=== PATIENT | male | born 1955 | race Caucasian/White ===

== ENCOUNTER → 2024-03-19 10:53 | Outpatient (REF) | payer OTHER, SELFPAY ==
[2024-03-19 12:12] LABS: ALT (SGPT) 24 U/L (0-50); AST (SGOT) 24 U/L (17-59); Albumin 3.9 g/dl (3.5-5.0); Alkaline Phosphatase 122 U/L (38-126); Blood Urea Nitrogen 15 mg/dl (9-20); Calcium 9.5 mg/dl (8.4-10.2); Carbon Dioxide 23 mmol/L (22-30); Chloride 106 mmol/L (98-107); Glucose 101 mg/dl (70-99); HDL Cholesterol 40 mg/dl; LDL Cholesterol, Calculated 46 mg/dl; Potassium 4.6 mmol/L (3.5-5.1); Sodium 139 mmol/L (135-145); Total Bilirubin 0.6 mg/dl (0.2-1.3); Total Cholesterol 102 mg/dl (50-199); Total Protein 6.5 g/dl (6.3-8.2); Triglyceride 81 mg/dl (10-149); Very Low Density Lipoprotein 16 mg/dl (0-30); eGFR > 60.00
[2024-03-19 12:36] LABS: Microalbumin, Random Urine 0.9 mg/dl (0.6-1.7)
[2024-03-19 13:23] LABS: Glycohemoglobin (HgbA1c) 6.2 % (4.0-5.6)
== END ==
LOC: HWLAB 10:53
PROVIDERS: ATTENDING PHYSICIAN Internal Medicine
DX: E11.621 Type 2 diabetes mellitus with foot ulcer (principal); E11.65 Type 2 diabetes mellitus with hyperglycemia; R93.1 Abnormal findings on diagnostic imaging of heart and coronary circulation
CPT/HCPCS: 36415; 80053; 80061; 82043; 83036

== ENCOUNTER → 2024-03-26 10:49 | Outpatient (REF) | payer OTHER, SELFPAY | LOC: RAD 10:49 | PROVIDERS: ATTENDING PHYSICIAN Internal Medicine Cardiovascular Disease; FAMILY PHYSICIAN Internal Medicine | DX: Z13.6 Encounter for screening for cardiovascular disorders (principal); Z82.49 Family history of ischemic heart disease and other diseases of the circulatory system; R93.1 Abnormal findings on diagnostic imaging of heart and coronary circulation; E11.9 Type 2 diabetes mellitus without complications; E78.00 Pure hypercholesterolemia, unspecified; Z86.718 Personal history of other venous thrombosis and embolism; I45.10 Unspecified right bundle-branch block | CPT/HCPCS: 76770; 93306 ==

== ENCOUNTER 2024-08-21 16:17 | Inpatient (IN) | payer OTHER, SELFPAY ==
[2024-08-21 12:02] VITALS: BP 178/82
[2024-08-21 12:29] LABS: % Basophils 0.6 % (0-2); % Eosinophils 1.8 % (0-6); % Immature Granulocytes 0.3 % (0-0.5); % Lymphocytes 17.6 % (20.5-51.1); % Monocytes 8.2 % (1.7-9.3); % Neutrophils 71.5 % (42.2-75.2); Absolute Basophils 0.1 10^3/uL (0-0.2); Absolute Eosinophils 0.2 10^3/uL (0-0.7); Absolute Lymphocytes 2.2 10^3/uL (1.2-3.4); Absolute Neutrophils 8.9 10^3/uL (1.4-6.5); Hematocrit 42.3 % (39.0-52.0); Hemoglobin 14.7 g/dL (13.0-18.0); Mean Corp Hgb Conc. 34.8 g/dL (33.0-37.0); Mean Corpuscular Hgb 30.3 pg (27.0-31.0); Mean Corpuscular Volume 87.2 fL (80.0-94.0); Mean Platelet Volume 9.4 fL (7.4-10.4); Nucleated Red Blood Cells % 0 % (-); Platelet Count 260 10^3/uL (130-400); Red Blood Cell Count 4.85 10^6/uL (4.70-6.10); Red Cell Dist. Width 13.7 % (11.5-14.5); White Blood Cell Count 12.5 10^3/uL (4.8-10.8)
[2024-08-21 12:41] LABS: ALT (SGPT) 28 U/L (0-50); AST (SGOT) 28 U/L (17-59); Albumin 4.5 g/dl (3.5-5.0); Alkaline Phosphatase 118 U/L (38-126); Blood Urea Nitrogen 24 mg/dl (9-20); Calcium 10.4 mg/dl (8.4-10.2); Carbon Dioxide 23 mmol/L (22-30); Chloride 105 mmol/L (98-107); Glucose 124 mg/dl (70-99); Potassium 5.4 mmol/L (3.5-5.1); Sodium 141 mmol/L (135-145); Total Bilirubin 0.8 mg/dl (0.2-1.3); Total Protein 7.1 g/dl (6.3-8.2); eGFR > 60.00
--- NOTE | 2024-08-21 13:41 | ED.SKININJ ---
HPI-Injury
General
Chief Complaint: Skin Problem
Source: patient
Exam Limitations: none
Time Seen by Provider: 08/21/24 13:29
History of Present Illness-Injury
Initial Injury comments:
68-year-old male diabetic patient presents with 2 days worth of redness swelling and discoloration to the right fourth toe. He has had prior amputations of the second and third toe. He has neuropathy. He does not have any pain. He denies fevers
chills or sweats. He is on metformin and Trulicity but is not currently on insulin.
Past History
Past History
ED Past Medical History: NIDDM
ED Past Surgical History: Orthopedic (Amputation of the right third toe)
Social History
Tobacco: Non-smoker
Alcohol: None
Drug: None
Personal:
Living: with family
Employment: Retired
Family History
Family History: Other (Noncontributory)
Phy Exam
Physical Exam
Physical Exam:
General: Well-appearing male no acute respiratory distress
HEENT: Normocephalic atraumatic
Heart: Regular rate and rhythm no murmurs
Lungs: Clear no wheeze
Skin: Right fourth toe erythematous swollen malodorous and slightly necrotic towards the distal portion of the toe. Mild erythema noted over the dorsum of the foot
Vascular: 2+ dorsalis pedis pulse right foot
Neurologic: Decreased sensation to light touch to right foot
Course
Orders/Labs/Results
Orders:
Orders
08/21/24 12:08
Complete Blood Count/With Diff Urgent
Comprehensive Metabolic Panel Urgent
08/21/24 13:40
CR Foot - Right Min 3 Views Urgent
Comment:
Reason For Exam: toe infection
08/21/24 15:10
Piperacillin/Tazo 3.375 Gram [Zosyn] 3.375 gram in 50 ml IV NOW
Abnormal Lab Results
08/21/24
12:08
WBC 12.5 H 10^3/uL
(4.8-10.8)
Absolute Neuts (auto) 8.9 H 10^3/uL
(1.4-6.5)
Absolute Monos (auto) 1.0 H 10^3/uL
(0.1-0.6)
Lymphocytes % 17.6 L %
(20.5-51.1)
Potassium 5.4 H mmol/L
(3.5-5.1)
BUN 24 H mg/dl
(9-20)
Glucose 124 H mg/dl
(70-99)
Calcium 10.4 H mg/dl
(8.4-10.2)
08/21/24 12:08
08/21/24 12:08
Vital Signs
Initial and Last Documented VS:
Initial Vital Signs
Temp Pulse Resp BP Pulse Ox
97.6 F 72 18 178/82 100
08/21/24 12:02 08/21/24 12:02 08/21/24 12:02 08/21/24 12:02 08/21/24 12:02
Last Documented Vital Signs
Temp Pulse Resp BP Pulse Ox
97.6 F 72 18 178/82 100
08/21/24 12:02 08/21/24 12:02 08/21/24 12:02 08/21/24 12:02 08/21/24 12:02
MDM/Problems Addressed
Differential Diagnosis Includes:
Right fourth toe infection. Concern for cellulitis also consider abscess versus osteomyelitis. Patient is a diabetic patient. Labs demonstrate slight leukocytosis with a value of 12.5. X-rays right foot pending to screen for osteomyelitis. Will
have low threshold to keep given diabetic state and leukocytosis
*Critical Care Note
Total Time (30-74mins, 75-104mins- exclusive of procedures): Not Applicable
Update Note
Update Note:
X-ray showed no obvious evidence of osteomyelitis. Zosyn ordered will admit to hospital for diabetic foot infection
ED Attending Note
-
Portions of this chart may have been created with voice recognition software.� Occasional wrong word or��sound alike� substitutions may have occurred due to the inherent limitations of voice recognition software.
Discharge Plan
Departure
Patient Disposition: Admit
Date of Disposition: 08/21/24
Time of Disposition: 15:26
Admit to: Med/Surg
Presentation/result/management discussed w/ accepting MD/DO: Hospitalist
Discharge Problem:
Diabetic infection of right foot
Prescriptions:
No Action
metformin 500 MG tablet
1,000 mg PO BID@0800,1700
aspirin 81 MG tablet,delayed release (DR/EC)
81 mg PO DAILY
atorvastatin 40 mg Tablet
40 mg PO QPM
Centrum Silver 0.4 mg-300 mcg- 250 mcg Tablet
1 tab PO DAILY
Trulicity 4.5 mg/0.5 mL Pen Injector
4.5 mg SC MARKS
Referrals:
Torrey Alvarez DO [Family Provider] -
Interventions
Interventions:
*Risk Screen - Suicide Last Done: 08/21/24 12:02
*General Assessment Last Done: 08/21/24 12:02
*Neglect/Abuse Screening Last Done: 08/21/24 12:02
*ED COVID-19 Vaccine History Last Done: 08/21/24 12:02
Discharge Date and Time
Print Language: SAMOAN
[2024-08-21] MEDS: ZOSYN 50 IV ×2 (15:54→22:27)
--- NOTE | 2024-08-21 16:14 | HPS.HSE ---
Addendum entered and electronically signed by Whitney Benoit MD 08/21/24 20:32:
NPO past midnight for potential amputation tomorrow.
Original Note:
Family Physician
-
Family Physician: Torrey Alvarez
Chief Complaint
-
toe infection
History of Present Illness
68-year-old male past medical history of diabetes, diabetic neuropathy, prior amputations of left and right lower extremity, bilateral DVTs 9 years ago, presenting with 2 days of redness, swelling discoloration of the right fourth toe. There was
drainage. He denies any fevers or chills. He has decreased sensation of the feet due to his neuropathy. He has chronic red discoloration of his right lower extremity from prior DVTs.
His nut culler is Dr. Cornell.
He has a history of DVTs 9 years ago treated with anticoagulation but no longer on anticoagulation. He had arterial ultrasounds checked at that time and a year later which were unremarkable. He denies any further arterial workup.
He is a former smoker. He denies alcohol.
Medical History
Past Medical History
Past Medical History: Reports Other (diabetes, diabetic neuropathy, prior amputations of left and right lower extremity, bilateral DVTs 9 years ago,)
Past Surgical History: Reports None
Social History
Tobacco: Non-smoker
Alcohol: None
Drug: None
Family History
Family History: Not pertinent
Allergies / Home Medications
Allergies reflects when Allergies were last updated in [facility].
Home Medications with original date entered in [facility]
Allergy/Medication List:
Allergies
Allergy/AdvReac Type Severity Reaction Status Date / Time
No Known Allergies Allergy Verified 03/17/22 10:20
Home Medications
aspirin 81 mg tablet,delayed release 81 mg PO DAILY Blood clot prevention/tx 03/17/22
metformin 500 mg tablet 1,000 mg PO BID@0800,1700 Diabetes 03/17/22
atorvastatin 40 mg tablet 40 mg PO QPM 08/21/24
dulaglutide 4.5 mg/0.5 mL subcutaneous pen injector (Trulicity) 4.5 mg SC MARKS 08/21/24
nmrinjni-ejt-yawvx acid 0.4 mg-lycopene 300 mcg-lutein 250 mcg tablet (Centrum Silver) 1 tab PO DAILY 08/21/24
Review of Systems
-
Constitutional: Reports No Symptoms
EENT: Reports No Symptoms
Respiratory: Reports No Symptoms
Cardiac: Reports No Symptoms
Abdomen/GI: Reports No Symptoms
: Reports No Symptoms
Musculoskeletal: Reports No Symptoms
Skin: Reports See HPI
Neurological: Reports No Symptoms
Endocrine: Reports No Symptoms
Hematologic/Lymphatic: Reports No Symptoms
Psych: Reports No Symptoms
Physical Exam
Vital Signs
Vital Signs
Temp Pulse Resp BP Pulse Ox
97.6 F 72 18 178/82 100
08/21/24 12:02 08/21/24 12:02 08/21/24 12:02 08/21/24 12:02 08/21/24 12:02
Physical Exam
General: Well Developed, Well Nourished and No Apparent Distress
HEENT: NormoCephalic, Moist mucous membranes and Atraumatic
Respiratory: Clear
Cardiac: S1/S2 and Regular Rhythm; No Murmur or Rub
GI: Soft, Non Tender, Non Distended and Normal Bowel Sounds; No Organomegaly
Rectal: Deferred by Provider
Musculoskeletal: No Clubbing, No Cyanosis and No Edema
Skin: Other (right 4th toe etyrhema and swelling with gangrene ); No Rash
Neuro: Nonfocal/grossly intact
Laboratory Results
-
08/21/24 12:08
08/21/24 12:08
Laboratory Results
Total Bilirubin 0.8 mg/dl (0.2-1.3) 08/21/24 12:08
AST 28 U/L (17-59) 08/21/24 12:08
ALT 28 U/L (0-50) 08/21/24 12:08
Alkaline Phosphatase 118 U/L (38-126) 08/21/24 12:08
Data Reviewed
-
Lab Data: Labs Reviewed by me
Old Records: Reviewed
Impression/Plan
-
IMPRESSION:
PLAN:
# Right fourth toe diabetic foot infection suspect osteomyelitis with gangrene
-Foot x-ray pending to evaluate for osteomyelitis
-Check arterial ultrasound/THI
-Vancomycin Zosyn
-Likely will require amputation, podiatry consulted
# Hyperkalemia
-IV fluid bolus
Type 2 diabetes
-Hold metformin
-Insulin sliding scale
History of diabetic foot infection status post amputations of second and third toe
History of bilateral DVTs
Full code
DVT prophylaxis�heparin
Regular diet
[2024-08-21] MEDS: NSS 500 IV (16:45)
--- NOTE | 2024-08-21 17:09 | CM ---
Addendum entered by Liliana Francis 08/21/24 18:00:
BREA introduced self and role. Patient uses Dr. Guevara as a PCP and uses [facility] in [place] as pharmacy. He lives with his in home with a basement. He has 2 steps to enter. He is independent. He does not use any DME. He owns a walker. He drove
himself to the hospital. He is retired. 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 He denied any +SDOHs.
ANTICIPATED DISCHARGE DISPO: Home with , when medically cleared.
Original Note:
BREA chart reviewed. Patient is here for right fourth toe diabetic foot infection. Hospitalist suspects osteomyelitis with gangrene
[2024-08-21 17:30] VITALS: BP 139/68; BMI 42.5
--- NOTE | 2024-08-21 17:30 | PTCARENOTE ---
pt received as admission from ED to room 338- pt ambulated from stretcher to bed. AAOX3. denies pain. right 4th toe red and swollen with open area. pt oriented to room and unit. pt updated on plan of care.
1900- pt with hist of mrsa- transferred to room 328 private room
[2024-08-21 17:42] VITALS: BMI 42.8
[2024-08-21 18:17] LABS: Glucose - Point of Care 140 mg/dl (70-99)
[2024-08-21 18:18] VITALS: BP 132/83
[2024-08-21] MEDS: LIPITOR 40 MG PO (18:37)
--- NOTE | 2024-08-21 19:05 | PHA.VAN.IN ---
Assessment
- Assessment
Renal Function: Appears similar to baseline (03/19/24 SCR = 1,0)
Concomitant Antimicrobials: ZOSYN
- Previous Dosing Experience
Previous Regimen: 1500MG IV Q12H
Date of Regimen: 03/18/22
Provided Trough of: 12
Provided AUC of: 498
Patient's SCR is: Elevated compared to previous dosing experience (03/18/22 SCR = 0.8)
Patient's weight is: Decreased compared to previous dosing experience (03/18/22 WT = 146.8 KG)
AUC Dosing Plan
- Dosing Variables
Dosing Weight (kg): 142.9 KG
Dosing CrCl (ml/min): 92
Vd coefficient (L/kg): 0.5
- Empiric Dosing
Initial / Loading Dose: 2GM
Maintenance Regimen: 1500MG IV Q12H
Estimated AUC (mcg*h/mL): 552
Estimated Peak (mcg*h/mL): 33.9
Estimated Trough (mcg/ml): 14.5
Estimated Half Life (H): 8.6
Pharmacokinetics Vancomycin I
- -
Patient Age: 68
Patient Sex: Male
Vancomycin Day #: 1
Indication: Diabetic Foot (OM/GANGRENE)
Requesting Provider: MARY
Height / Weight:
Height 6 ft
Actual Weight 142.882 kg
Pertinent Past Medical History: DM/PRIOR TOE AMPUTATIONS
- Vital Signs / Lab Results
Temp Pulse Resp BP Pulse Ox
97.6 F 77 16 132/83 100
08/21/24 12:02 08/21/24 18:18 08/21/24 18:18 08/21/24 18:18 08/21/24 18:18
Lab Results - Hematology
08/21/24
12:08
WBC 12.5 H
Lab Results - Chemistry
08/21/24
12:08
BUN 24 H
Creatinine 1.1
Albumin 4.5
[2024-08-21] MEDS: VANCOCIN 540 MG IV (20:06)
[2024-08-21] MEDS: HEPARIN 5000 UNITS SC (20:56)
[2024-08-21 21:08] LABS: Glucose - Point of Care 128 mg/dl (70-99)
[2024-08-21 23:29] VITALS: BP 155/81
[2024-08-22] MEDS: ZOSYN 50 IV ×4 (04:00→21:04)
[2024-08-22] MEDS: VANCOCIN 530 MG IV ×2 (06:18→17:22)
[2024-08-22 06:25] LABS: % Basophils 0.9 % (0-2); % Eosinophils 3.8 % (0-6); % Immature Granulocytes 0.3 % (0-0.5); % Lymphocytes 18.1 % (20.5-51.1); % Monocytes 11.1 % (1.7-9.3); % Neutrophils 65.8 % (42.2-75.2); Absolute Basophils 0.1 10^3/uL (0-0.2); Absolute Eosinophils 0.4 10^3/uL (0-0.7); Absolute Lymphocytes 1.7 10^3/uL (1.2-3.4); Absolute Monocytes 1.1 10^3/uL (0.1-0.6); Absolute Neutrophils 6.3 10^3/uL (1.4-6.5); Hematocrit 38.9 % (39.0-52.0); Mean Corp Hgb Conc. 33.4 g/dL (33.0-37.0); Mean Corpuscular Hgb 29.8 pg (27.0-31.0); Mean Corpuscular Volume 89.2 fL (80.0-94.0); Mean Platelet Volume 9.5 fL (7.4-10.4); Nucleated Red Blood Cells % 0 % (-); Platelet Count 220 10^3/uL (130-400); Red Blood Cell Count 4.36 10^6/uL (4.70-6.10); Red Cell Dist. Width 13.7 % (11.5-14.5); White Blood Cell Count 9.6 10^3/uL (4.8-10.8)
[2024-08-22 06:52] LABS: ALT (SGPT) 24 U/L (0-50); AST (SGOT) 26 U/L (17-59); Albumin 3.7 g/dl (3.5-5.0); Alkaline Phosphatase 101 U/L (38-126); Blood Urea Nitrogen 23 mg/dl (9-20); Calcium 9.4 mg/dl (8.4-10.2); Carbon Dioxide 21 mmol/L (22-30); Chloride 107 mmol/L (98-107); Estimated Creatinine Clearance 92 ml/min; Glucose 91 mg/dl (70-99); Potassium 4.5 mmol/L (3.5-5.1); Sodium 140 mmol/L (135-145); Total Bilirubin 0.9 mg/dl (0.2-1.3); Total Protein 6.1 g/dl (6.3-8.2); eGFR > 60.00
[2024-08-22 07:10] VITALS: BP 165/85
[2024-08-22 07:20] LABS: Glucose - Point of Care 118 mg/dl (70-99)
[2024-08-22 07:38] LABS: Hepatitis C Antibody Reactive (Negative)
[2024-08-22] MEDS: ASPIR LOW (ENTERIC COATED) 81 MG PO (07:42)
[2024-08-22] MEDS: HEPARIN 5000 UNITS SC ×2 (07:42→20:53)
[2024-08-22] MEDS: THERAGRAN 1 TABLET PO (07:42)
--- NOTE | 2024-08-22 09:41 | WOUNDNOTE ---
R PLANTAR FOOT/TOES
--- NOTE | 2024-08-22 09:41 | WOUNDNOTE ---
R 4TH TOE
--- NOTE | 2024-08-22 09:44 | WOUNDNOTE ---
[facility] RN note: Patient admitted with diabetic foot infection R 4th toe tip gangrene.
See H&P for complete history.
PMH: DM, neuropathy, bilateral 2, 3rd toe amps, L knee replacement, DVT le's 9 years ago, obesity.
Wound Location and type/assessment: Patient admitted with: R 4th toe tip dry gangrenous diabetic ulcer. +Hammer toes. +Pedal pulses heard via portable Doppler. Arterial Doppler Le's pending. R foot x-ray pending. He has mesh type sneaker (shoe size
11). He is followed by Dr. Cornell however he was in [place] for about 8 months to help his parents.
Appetite: currently NPO.
Pressure redistribution devices in place: [employer] Accumax. Patient moves self and ambulates to bathroom.
Plan: Dry gauze dressing applied to R 4th toe. Heels off bed with pillows. Dr. Cornell to manage toe with a possible toe amp planned. Will sign off. Call if needed. Patient to follow up with Dr. Cornell.
--- NOTE | 2024-08-22 09:50 | W.PN.HOSP.TC ---
Today's Communication/Plan
-
NPO for surgery
Assessment / Plan
Assessment / Plan
Physical Exam
General: No Apparent Distress, obese.
HEENT: Normocephalic, Moist mucous membranes and Atraumatic
Respiratory: Clear
Cardiac: S1/S2 and Regular Rhythm.
GI: Soft, Non Tender, Non Distended and Normal Bowel Sounds;.
Rectal: No rectal bleeding
Musculoskeletal: No Clubbing, No Cyanosis and No Edema
Skin: Other (right 4th toe gangrene, foul smelling ); No Rash
Neuro: Nonfocal/grossly intact, AAOX3.
Psych: calm, no agitation
# Right fourth toe gangrene due to diabetes
-Check arterial ultrasound/THI
-s/p IV Vancomycin & Zosyn
- Plan for toe amputation, d/w Dr Cornell, appreciate help.
Consult ID
# Hyperkalemia
-resolving
Type 2 diabetes
-Hold metformin
-Insulin sliding scale
#History of diabetic foot infection status post amputations of second and third toe
# History of bilateral DVTs
Full code
DVT prophylaxis�heparin
Total time spent to see the patient, examine the patient, review data and lab results, discuss treatment plan with patient, truck guard, nursing staff around 55 minutes
Anticipated Discharge: > 48 hours
Subjective/Interval History
-
Date of Service: August 22, 2024
No pain in the leg
No fevers
No chest pain
Objective Data
-
Labs:
Laboratory Results
08/22/24
05:27
WBC 9.6
Hgb 13.0
Hct 38.9 L
Plt Count 220
Sodium 140
Potassium 4.5
Chloride 107
Carbon Dioxide 21 L
BUN 23 H
Creatinine 1.1
Glucose 91
Calcium 9.4
Total Bilirubin 0.9
AST 26
ALT 24
Alkaline Phosphatase 101
Vital Signs:
Vital Signs
Temp Pulse Resp BP Pulse Ox
97.6 F 70 18 165/85 99
08/22/24 07:10 08/22/24 07:10 08/22/24 07:10 08/22/24 07:10 08/22/24 07:10
I&O
08/21/24 08/22/24 08/23/24
06:59 06:59 06:59
Intake Total 480 / 480
Balance 480 / 480
--- NOTE | 2024-08-22 10:06 | PHA.VAN.FU ---
Addendum entered and electronically signed by Leonard Petersen [facility] 08/22/24 10:10:
BMI-42.7 Following vancomycin closely for accumulation
Original Note:
Vancomycin Assessment / Plan
- Assessment
Renal Function: Stable (1.1>1.1)
WBC's are: Trending Down (12.5>9.6)
In the past 24 hrs, patient has been: Afebrile
Concomitant Antimicrobials: Piperacillin-tazobactam
- Dosing Plan
Continue: Vancomycin 1500mg IV Q12hrs
- Monitoring Plan
No level(s) ordered at this time: Will order levels according to vancomycin dosing protocol
- Follow Up
Pharmacy will continue to follow.
Vancomycin Follow UP
- -
Patient Age: 68
Patient Sex: Male
Vancomycin Day #: 2
Indication: Diabetic Foot (OM/GANGRENE)
Requesting Provider: MARY
Height / Weight:
Height 6 ft
Actual Weight 142.882 kg
Pertinent Past Medical History: DM/PRIOR TOE AMPUTATIONS
- Vital Signs / Lab Results
Temp Pulse Resp BP Pulse Ox
97.6 F 70 18 165/85 99
08/22/24 07:10 08/22/24 07:10 08/22/24 07:10 08/22/24 07:10 08/22/24 07:10
Lab Results - Hematology
08/21/24 08/22/24
12:08 05:27
WBC 12.5 H 9.6
Lab Results - Chemistry
08/21/24 08/22/24
12:08 05:27
BUN 24 H 23 H
Creatinine 1.1 1.1
Estimated Creat Clear 92
Albumin 4.5 3.7
[2024-08-22 10:07] LABS: Glycohemoglobin (HgbA1c) 5.9 % (4.0-5.6)
[2024-08-22 12:44] LABS: Glucose - Point of Care 96 mg/dl (70-99)
--- NOTE | 2024-08-22 12:46 | CON.MD ---
Consultation - Medical
-
68 year old male with diabetics and peripheral neuropathy admitted for right 4th toe swelling. Known to our service but not seen for 18 months as he was in [place] taking care of his elderly parents. States an incident this past year of swelling
and redness in the second right toe and had the digit amputated while still in [place]. Since returning, he noticed some redness and swelling over the last week in the right 4th toe with no history of trauma. States no fever or chills, but
discoloration and malodor increasing in severity.
On examination, the right fourth toe is edematous with erythema localized to the right 4th toe. Ulcer present at the distal tip with drainage and surrounding soft tissue necrosis. Malodor also noted. Ulcer probes to bone. Foot is warm to touch
with good color and palpable but diminished pulses. Radiographs show no sign of osseous changed but soft tissue inflammation and infection. Vascular testing done today shows adequate perfusion to heal the surgical site.
Discussed with patient that ulcer probes to bone and malodor and soft tissue necrosis is present, requiring digital amputation. Patient understands that further surgical intervention may be needed if removal of the toe does not resolve the
infection. He has had several digits amputated in the past as a result of similar issues and understands the operative and post operative course. All questions answered to patient satisfaction. Scheduled for right 4th toe amputation this
afternoon.
[2024-08-22 13:13] VITALS: BP 138/68
--- NOTE | 2024-08-22 13:53 | CON.ID ---
Addendum entered and electronically signed by Jazmín Smalls MD 08/22/24 14:56:
HCV Antibody reactive.
Ordered HCV quantitative PCR in am.
Original Note:
Consultation
-
Date/Time Consultation Requested: August 22, 2024 0649
Date/Time Consultation Performed: August 22, 2024 1400
Requesting Provider: Dr. Rashmi Ace
Performing Provider: Dr. Jazmín Smalls
Reason for Consultation: Right foot cellulitis
Chief Complaint / Past History
Chief Complaint
Toe infection
History of Present Illness
68-year-old male with diabetes mellitus type 2, neuropathy, history of several toe amputations who presented to the hospital on August 21 with 4-day history of right fourth toe swelling redness and wound. He noted the toe was slightly red on
Sunday. Toe was stable on Sunday. However on Sunday it became more erythematous and edematous. He then noted a wound at the tip of his toe which was dark in color. No fevers or chills. No trauma. He was seen by podiatry who noted toe tip
ulcer probed to bone. He is going to the OR this afternoon for toe amputation. He is currently on vancomycin and Zosyn. He has no other complaints.
Past History
Additional Past Medical History:
Diabetes mellitus type 2
Neuropathy
Dyslipidemia.
History of bilateral lower extremity DVT from sedentary.
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
[facility] end of September 2021 and completed six weeks
of IV vancomycin.
Right 2nd toe amputation
Left 3rd toe osteo s/p amputation ()
Morbid obesity, BMI of 43.
Allergy History:
No Known Allergies Allergy (Verified 03/17/22 10:20)
Medications Reviewed: Yes
Current Antibiotics:
Vancomycin
Zosyn
Social History
Tobacco: Non-Smoker
Alcohol: None
Drug: None
Employment: Retired
Family History
Family History: Not Pertinent
Review of Systems
Review of Systems
General: Negative Fever, Chills or Change in Appetite
HEENT: Negative Sinus Problems, Headache or Pharyngitis
Cardiovascular: Negative Chest Pain or Dyspnea
Respiratory: Negative Dyspnea or Cough
Gasteroenterology: Negative Nausea, Vomiting or Diarrhea
Genital / Urological: Negative Dysuria or Flank Pain
Endocrine: Negative Weakness
Neurological: Negative Dizziness
All systems: All other systems were reviewed and were negative
Vital Signs
Temp Pulse Resp BP Pulse Ox
97.6 F 70 18 138/68 99
08/22/24 07:10 08/22/24 13:13 08/22/24 07:10 08/22/24 13:13 08/22/24 07:10
Physical Exam
Physical Exam
Constitutional: No Acute Distress, Comfortable and Obese
Eyes: No Conjunctival Hemorrhage and Sclera Anicteric
Cardiovascular: Regular Rate and S1/S2
Pulmonary: Clear
Gastrointestinal: Soft, Non Tender, Non Distended and Normal Bowel Sounds
Extremities: Edema (Right foot 2+ edema)
Wound: Other (Right 4th toe at tuft + necrotic wound, toe is erythematous and edematous)
Neurological: AO x 3
Lab / Diagnostic Study Results
08/22/24 05:27
08/22/24 05:27
Abs Immat Gran (auto) 0.0 10^3/uL (0-0.05) 08/22/24 05:27
Absolute Neuts (auto) 6.3 10^3/uL (1.4-6.5) 08/22/24 05:27
Absolute Lymphs (auto) 1.7 10^3/uL (1.2-3.4) 08/22/24 05:27
Absolute Monos (auto) 1.1 10^3/uL (0.1-0.6) H 11/15/24 05:27
Absolute Basos (auto) 0.1 10^3/uL (0-0.2) 08/22/24 05:27
Immature Gran % 0.3 % (0-0.5) 08/22/24 05:27
Neutrophils % 65.8 % (42.2-75.2) 08/22/24 05:27
Lymphocytes % 18.1 % (20.5-51.1) L 08/22/24 05:27
Monocytes % 11.1 % (1.7-9.3) H 08/22/24 05:27
Eosinophils % 3.8 % (0-6) 08/22/24 05:27
Basophils % 0.9 % (0-2) 08/22/24 05:27
Microbiology Results
Micro:
08/21/24 18:27 MRSA Screen - Pending
Nose
08/21/24 Foot XRAY: Severe soft tissue swelling in the right 4th toe consistent with cellulitis.
Assessment / Plan
# Right 4th toe diabetic ulcer with osteomyelitis
- For toe amp today, per podiatry.
- Can continue Vancomycin and Zosyn for now.
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
Diabetes mellitus type 2
Neuropathy
Dyslipidemia.
History of bilateral lower extremity DVT from sedentary.
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
[facility] end of September 2021 and completed six weeks
of IV vancomycin.
Right 2nd toe amputation
Left 3rd toe osteo s/p amputation ()
Morbid obesity, BMI of 43.
[2024-08-22 15:06] VITALS: BP 140/77
--- NOTE | 2024-08-22 15:10 | PN.CDI ---
Addendum entered and electronically signed by Vanessa Ace MD 08/22/24 15:21:
Cellulitis of right 4 th toe a valid diagnosis
Original Note:
CDI
- -
CDI:
Physician Documentation Request
Admit Date: 08/21/24 16:17
Dear Doctor Malka,
Please review the following and provide your response in the progress notes.
Clinical Indicators:
The diagnosis of Cellulitis was included in the signed Foot Xray.
Additional clinical indicators in the chart include:
Foot Xray on admission ,' Severe soft tissue swelling in the right 4th toe consistent with cellulitis.'
Documented per ED, ' ...2 days worth of redness swelling and discoloration to the right fourth toe....Skin: Right fourth toe erythematous swollen malodorous and slightly necrotic towards the distal portion of the toe. Mild erythema noted over the
dorsum of the foot..'
Pt on Vancomycin/Zosyn
Please indicate in your progress notes if you are in agreement that the above diagnosis is valid for this patient:
____ - Cellulitis of right 4 th toe a valid diagnosis (Please include it in your progress notes)
____ - Cellulitis of right 4th Toe is not a valid diagnosis for this patient
____ - Other ( please specify)
Use of terms such as suspected, likely, concern for, or probable are acceptable for a diagnosis that is being evaluated, monitored or treated as if it exists and can be coded in the inpatient setting, when documented at the time of discharge.
Thank you,
Zehra Castrejon RN
CDI Specialist
[facility]
Please use your independent medical judgment in providing your response.
[2024-08-22 17:18] LABS: Glucose - Point of Care 101 mg/dl (70-99)
[2024-08-22] MEDS: LIPITOR 40 MG PO (17:23)
[2024-08-22 23:00] VITALS: BP 147/76
[2024-08-22 23:43] LABS: Glucose - Point of Care 83 mg/dl (70-99)
[2024-08-23] VITALS (10 sets, daily range): BP systolic 126–142; BP diastolic 63–83
[2024-08-23] MEDS: ZOSYN 50 IV ×3 (04:14→16:38)
[2024-08-23] MEDS: VANCOCIN 530 MG IV ×2 (06:23→17:20)
[2024-08-23 06:28] LABS: Glucose - Point of Care 85 mg/dl (70-99)
[2024-08-23 06:41] LABS: Hematocrit 41.5 % (39.0-52.0); Hemoglobin 13.5 g/dL (13.0-18.0); Mean Corp Hgb Conc. 32.5 g/dL (33.0-37.0); Mean Corpuscular Hgb 29.3 pg (27.0-31.0); Mean Corpuscular Volume 90.2 fL (80.0-94.0); Mean Platelet Volume 9.5 fL (7.4-10.4); Platelet Count 223 10^3/uL (130-400); Red Cell Dist. Width 13.6 % (11.5-14.5); White Blood Cell Count 7.1 10^3/uL (4.8-10.8)
[2024-08-23 07:07] LABS: Blood Urea Nitrogen 18 mg/dl (9-20); Calcium 9.4 mg/dl (8.4-10.2); Carbon Dioxide 21 mmol/L (22-30); Chloride 107 mmol/L (98-107); Estimated Creatinine Clearance 92 ml/min; Glucose 89 mg/dl (70-99); Potassium 4.5 mmol/L (3.5-5.1); Sodium 143 mmol/L (135-145); eGFR > 60.00
--- NOTE | 2024-08-23 07:55 | PHA.VAN.FU ---
Vancomycin Assessment / Plan
- Assessment
Renal Function: Stable
WBC's are: WNL
In the past 24 hrs, patient has been: Afebrile
Concomitant Antimicrobials: piperacillin/tazo
- Dosing Plan
Continue: vancomycin 1500 mg q12h
- Monitoring Plan
Peak Level: 08/23/24 2100 after 4th dose to check for accumulation
Trough Level: 08/24/24 0530
- Follow Up
Pharmacy will continue to follow.
Vancomycin Follow UP
- -
Patient Age: 68
Patient Sex: Male
Vancomycin Day #: 3
Indication: Diabetic Foot (OM/GANGRENE)
Requesting Provider: MARY
Height / Weight:
Height 6 ft
Actual Weight 142.882 kg
Pertinent Past Medical History: DM/PRIOR TOE AMPUTATIONS
- Vital Signs / Lab Results
Temp Pulse Resp BP Pulse Ox
97.8 F 67 16 147/76 98
08/22/24 23:00 08/22/24 23:00 08/22/24 23:00 08/22/24 23:00 08/22/24 23:00
Lab Results - Hematology
08/21/24 08/22/24 08/23/24
12:08 05:27 06:05
WBC 12.5 H 9.6 7.1
Lab Results - Chemistry
08/21/24 08/22/24 08/23/24
12:08 05:27 06:05
BUN 24 H 23 H 18
Creatinine 1.1 1.1 1.1
Estimated Creat Clear 92 92
Albumin 4.5 3.7
[2024-08-23] MEDS: THERAGRAN 1 TABLET PO (08:17)
[2024-08-23] MEDS: ASPIR LOW (ENTERIC COATED) 81 MG PO (08:17)
[2024-08-23] MEDS: HEPARIN 5000 UNITS SC ×2 (08:18→20:30)
--- NOTE | 2024-08-23 10:37 | W.PN.UPDATE ---
Update Note
Progress Note Update
Patient to OR today for right 4th toe amputation. Patient tolerated procedure and anesthesia without complication and returned to recovery room with vital signs stable and neurovascular status in tact. Bone culture and clean margin bone taken, but
appeared that all infected and necrotic tissue was removed. OK to bear weight with surgical shoe ordered.
[2024-08-23 10:39] LABS: Glucose - Point of Care 130 mg/dl (70-99)
--- NOTE | 2024-08-23 11:10 | PTCARENOTE ---
Addendum entered by Catrina Galarza RN 08/23/24 19:30:
patient returned from PACU s/p right 4th toe amputation. arrived back via bed aaox3, c/o no pain, lungs clear, no sob, apical regular, +posterior tibial pulse by doppler and dorsalis pedis is palpable but weak. able to wiggle toes, color pink,
reports extremity numbness unchanged, cap refill >3 seconds and trace edema. right foot dressing with kacie wrap on top c/d/i, elevated on 2 pillows, vss, will continue to monitor.
Addendum entered by Catrina Galarza RN 08/23/24 17:35:
patient returned from PACU s/p right 4th toe amputation. arrived back via bed aaox3, c/o no pain, lungs clear, no sob, apical regular, +posterior tibial pulse by doppler and dorsalis pedis is palpable but weak. able to wiggle toes, color pink,
reports extremity numbness unchanged, cap refill >3 seconds and trace edema. right foot dressing with kacie wrap on top c/d/i, vss, will continue to monitor.
Original Note:
patient returned from PACU s/p right 4th toe amputation. arrived back via bed aaox3, c/o no pain, lungs clear, no sob, apical regular, +posterior tibial pulse by doppler and dorsalis pedis is palpable but weak. able to wiggle toes, color pink,
reports extremity numbness unchanged, right foot dressing with kacie wrap on top c/d/i, vss, will continue to monitor.
[2024-08-23 12:39] LABS: Glucose - Point of Care 103 mg/dl (70-99)
--- NOTE | 2024-08-23 14:07 | W.PN.HOSP.TC ---
Today's Communication/Plan
-
.
Assessment / Plan
Assessment / Plan
Physical Exam
General: No Apparent Distress, obese.
HEENT: Normocephalic, Moist mucous membranes and Atraumatic
Respiratory: Clear
Cardiac: S1/S2 and Regular Rhythm.
GI: Soft, Non Tender, Non Distended and Normal Bowel Sounds;.
Rectal: No rectal bleeding
Musculoskeletal: No Clubbing, No Cyanosis and No Edema
Skin: Other (right 4th toe gangrene, foul smelling ); No Rash
Neuro: Nonfocal/grossly intact, AAOX3.
Psych: calm, no agitation
# Right fourth toe gangrene due to diabetes
s/p amputation by Dr Cornell on 08/23, appeared that all infected and necrotic tissue was removed.
-s/p IV Vancomycin & Zosyn
Consult ID , appreciate input
# Hyperkalemia
resolved
# leukocytosis, resolved
Type 2 diabetes
-Hold metformin
-Insulin sliding scale
#History of diabetic foot infection status post amputations of second and third toe
# History of bilateral DVTs
Full code
DVT prophylaxis�heparin
Total time spent to see the patient, examine the patient, review data and lab results, discuss treatment plan with patient, law firm receptionist, nursing staff around 55 minutes
Anticipated Discharge: 24 - 48 hours
Subjective/Interval History
-
Date of Service: August 23, 2024
Seen before surgery
Objective Data
-
Labs:
Laboratory Results
08/23/24
06:05
WBC 7.1
Hgb 13.5
Hct 41.5
Plt Count 223
Sodium 143
Potassium 4.5
Chloride 107
Carbon Dioxide 21 L
BUN 18
Creatinine 1.1
Glucose 89
Calcium 9.4
Vital Signs:
Vital Signs
Temp Pulse Resp BP Pulse Ox
97.5 F 67 18 132/66 98
08/23/24 12:10 08/23/24 12:10 08/23/24 12:10 08/23/24 12:10 08/23/24 12:10
I&O
08/22/24 08/23/24 08/24/24
06:59 06:59 06:59
Intake Total 480 / 480 1170 / 1170
Balance 480 / 480 1170 / 1170
--- NOTE | 2024-08-23 16:53 | W.PN.ID1 ---
Date of Service
Date of Service: August 23, 2024
Today's Communication
DC zosyn. Continue Vanco.
Assessment / Plan
# Right 4th toe diabetic ulcer with osteomyelitis
# MRSA colonized
- 08/23 s/p toe amp
-Suspect surgical cure.
- Continue Vancomycin for now.
- DC Zosyn.
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
Diabetes mellitus type 2
Neuropathy
Dyslipidemia.
History of bilateral lower extremity DVT from sedentary.
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
[facility] end of September 2021 and completed six weeks
of IV vancomycin.
Right 2nd toe amputation
Left 3rd toe osteo s/p amputation ()
Morbid obesity, BMI of 43.
Chief Complaint
-: Other (toe osteo)
Subjective / Review of Systems
Feel fine.
Vital Signs / Physical Exam
Vital Signs
Vital Signs
Temp Pulse Resp BP Pulse Ox
97.5 F 63 18 142/73 99
08/23/24 16:00 08/23/24 16:00 08/23/24 16:00 08/23/24 16:00 08/23/24 16:00
Physical Exam
Constitutional: No Acute Distress and Comfortable
Pulmonary: Clear
Gastrointestinal: Soft, Non Tender and Non Distended
Wound: Other
Objective Data
Lab Data
Lab Results
08/23/24 06:05
08/23/24 06:05
Estimated Creat Clear 92 ml/min 08/23/24 06:05
Total Bilirubin 0.9 mg/dl (0.2-1.3) 08/22/24 05:27
AST 26 U/L (17-59) 08/22/24 05:27
ALT 24 U/L (0-50) 08/22/24 05:27
Alkaline Phosphatase 101 U/L (38-126) 08/22/24 05:27
Most recent labs reviewed.
Micro Results:
08/23/24 10:20 Tissue Culture - Pending
Toe Gram Stain - Preliminary
08/21/24 18:27 MRSA Screen - Final
Nose Staph aureus MRSA
08/21/24 Foot XRAY: Severe soft tissue swelling in the right 4th toe consistent with cellulitis.
[2024-08-23 17:20] LABS: Glucose - Point of Care 96 mg/dl (70-99)
[2024-08-23] MEDS: LIPITOR 40 MG PO (17:20)
--- NOTE | 2024-08-23 20:26 | VATNOTE ---
VAT paged to restart patient's left hand PIV as hand was swollen. Patient had vanco infusing which infiltrated. Swelling measures 5cm by 5cm. PIV restarted in right arm. Awaiting medication from pharmacy to treat infiltrate. Left hand elevated and
cool compress applied. Will continue to monitor.
[2024-08-23] MEDS: HYLENEX 150 UNITS SC (21:00)
[2024-08-23 21:27] LABS: Glucose - Point of Care 103 mg/dl (70-99)
[2024-08-23 22:47] LABS: Vancomycin Peak 25.5 ug/ml (18-26)
[2024-08-24 03:00] VITALS: BP 138/80
[2024-08-24 06:05] LABS: Hematocrit 39.6 % (39.0-52.0); Hemoglobin 13.3 g/dL (13.0-18.0); Mean Corp Hgb Conc. 33.6 g/dL (33.0-37.0); Mean Corpuscular Volume 89.4 fL (80.0-94.0); Mean Platelet Volume 9.4 fL (7.4-10.4); Platelet Count 225 10^3/uL (130-400); Red Blood Cell Count 4.43 10^6/uL (4.70-6.10); Red Cell Dist. Width 13.5 % (11.5-14.5); White Blood Cell Count 8.1 10^3/uL (4.8-10.8)
[2024-08-24] MEDS: VANCOCIN 530 MG IV ×2 (06:08→18:08)
[2024-08-24 06:16] LABS: Vancomycin Trough 19.4 ug/ml (5-20)
--- NOTE | 2024-08-24 06:20 | VATNOTE ---
Follow up note from brenda gonzales left hand: swelling completely resolved, patient reports no pain in left hand.
[2024-08-24 06:29] LABS: Blood Urea Nitrogen 17 mg/dl (9-20); Calcium 9.3 mg/dl (8.4-10.2); Carbon Dioxide 22 mmol/L (22-30); Chloride 108 mmol/L (98-107); Estimated Creatinine Clearance 92 ml/min; Glucose 97 mg/dl (70-99); Potassium 4.4 mmol/L (3.5-5.1); Sodium 142 mmol/L (135-145); eGFR > 60.00
[2024-08-24 08:01] LABS: Glucose - Point of Care 119 mg/dl (70-99)
[2024-08-24 08:18] VITALS: BP 156/82
[2024-08-24] MEDS: THERAGRAN 1 TABLET PO (08:32)
[2024-08-24] MEDS: ASPIR LOW (ENTERIC COATED) 81 MG PO (08:32)
[2024-08-24] MEDS: HEPARIN 5000 UNITS SC ×2 (08:32→20:27)
--- NOTE | 2024-08-24 09:14 | PHA.VAN.FU ---
Addendum entered and electronically signed by Dagmar Schuster [facility] 08/24/24 22:34:
Laboratory Tests
08/24/24
17:50
Vancomycin Trough 20.3 H*
Trough drawn appropriately after 5th dose. Pt may be accumulating. Will place current order for vancomycin on hold and reassess in AM.
Vladislav Schuster, Pharm.D.
Original Note:
Vancomycin Assessment / Plan
- Assessment
Renal Function: Stable
WBC's are: WNL
In the past 24 hrs, patient has been: Afebrile
Concomitant Antimicrobials: none
- Assessment - Therapeutic Drug Monitoring
Resultant Peak drawn last night 08/23/24 25.5
This morning's trough was 19.4
Of note, last evening vancomycin infiltrated. Infusion was stopped. Infiltation was treated with Hyaluronidaise. New PIV was started in other arm could not get details of when started and when infusion ended.
- Dosing Plan
Continue: vancomycin 1500 mg q12h for now
- Monitoring Plan
Trough Level: will order TROUGH ONLY at 17:30 tonight to assess for accumulation
- Follow Up
Pharmacy will continue to follow.
Vancomycin Follow UP
- -
Patient Age: 68
Patient Sex: Male
Vancomycin Day #: 4
Indication: Diabetic Foot (OM/GANGRENE)
Requesting Provider: MARY
Height / Weight:
Height 6 ft
Actual Weight 142.882 kg
Pertinent Past Medical History: DM/PRIOR TOE AMPUTATIONS
- Vital Signs / Lab Results
Temp Pulse Resp BP Pulse Ox
97.6 F 69 16 156/82 100
08/24/24 08:18 08/24/24 08:18 08/24/24 08:18 08/24/24 08:18 08/24/24 08:18
Lab Results - Hematology
08/21/24 08/22/24 08/23/24
12:08 05:27 06:05
WBC 12.5 H 9.6 7.1
08/24/24
05:49
WBC 8.1
Lab Results - Chemistry
08/21/24 08/22/24 08/23/24
12:08 05:27 06:05
BUN 24 H 23 H 18
Creatinine 1.1 1.1 1.1
Estimated Creat Clear 92 92
Albumin 4.5 3.7
08/24/24
05:49
BUN 17
Creatinine 1.1
Estimated Creat Clear 92
Albumin
Microbiology Results
08/23/24 10:20 Gram Stain - Preliminary
Toe
08/21/24 18:27 MRSA Screen - Final
Nose Staph aureus MRSA
Therapeutic Drug Monitoring
Vancomycin Peak 25.5 ug/ml (18-26) 08/23/24 22:16
Vancomycin Trough 19.4 ug/ml (5-20) 08/24/24 05:49
--- NOTE | 2024-08-24 10:20 | W.PN.POD ---
Today's Communication
Today's Communication
Encourage out of bed with surgical shoe
Await ID input on outpatient antibiotic therapy
Assessment / Plan
-
Cellulitis and ulcer right 4th toe
-Amputation right 4th toe 08/23/24
Partial closure and packing pulled today. No further soft tissue necrosis.
Surgical cure assumed as surrounding soft tissue and bone appear viable.
MRSA colonization. Appreciate ID input on whether it is necessary to await intraoperative culture/path results if surgical cure suspected.
Afebrile with WBC in normal range
Encourage out of bed and weight bearing with surgical shoe
Stable for discharge from surgical standpoint
Diabetic with peripheral neuropathy
-History of right 2nd and 3rd toe and left 3rd toe amputation
History of DVT
Subjective
Chief Complaint
Patient admitted with right 4th toe ulcer and cellulitis.
Subjective
Patient resting comfortably with no complaints
Objective
Temp Pulse Resp BP Pulse Ox
97.6 F 69 16 156/82 100
08/24/24 08:18 08/24/24 08:18 08/24/24 08:18 08/24/24 08:18 08/24/24 08:18
08/24/24 05:49
08/24/24 05:49
Vital Signs and Lab results were reviewed.
Review of Systems
Review of Systems
Review of Systems: Fever and No Fever
Physical Exam
Physical Exam
Dressing removed with no malodor and no drainage. Partial wound closure with sutures in tact and packing pulled. No further malodor
--- NOTE | 2024-08-24 10:25 | W.PN.HOSP.TC ---
Today's Communication/Plan
-
Follow with podiatry and ID recommendations
c/w ABx
Consider low dose lisinopril
Assessment / Plan
Assessment / Plan
Physical Exam
General: No Apparent Distress, obese.
HEENT: Normocephalic, Moist mucous membranes and Atraumatic
Respiratory: Clear
Cardiac: S1/S2 and Regular Rhythm.
GI: Soft, Non Tender, Non Distended and Normal Bowel Sounds;.
Rectal: No rectal bleeding
Musculoskeletal: No Clubbing, No Cyanosis and No Edema
Skin: Other (right 4th toe gangrene, foul smelling ); No Rash
Neuro: Nonfocal/grossly intact, AAOX3.
Psych: calm, no agitation
# Right fourth toe gangrene due to diabetes
History of right 2nd and 3rd toe and left 3rd toe amputation
s/p amputation by Dr Cornell on 08/23, appeared that all infected and necrotic tissue was removed.
Preliminary culture Staph Aureus
-s/p IV Vancomycin & Zosyn
Consulted ID & podiatry , appreciate input
# Hyperkalemia
resolved
# Elevated BP, suspect underlying essential HTN
SBP around 130-178, might benefit from RENU in setting of diabetes
Will start low dose Lisinopril , to d/w pt.
# leukocytosis, resolved
Type 2 diabetes
-Hold metformin
-Insulin sliding scale
#History of diabetic foot infection status post amputations of second and third toe
# History of bilateral DVTs
Full code
DVT prophylaxis�heparin
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
Anticipated Discharge: Within 24 hours
Subjective/Interval History
-
Date of Service: August 24, 2024
No chest pain
No sob
No fevers
No pain in foot
Objective Data
-
Labs:
Laboratory Results
08/24/24
05:49
WBC 8.1
Hgb 13.3
Hct 39.6
Plt Count 225
Sodium 142
Potassium 4.4
Chloride 108 H
Carbon Dioxide 22
BUN 17
Creatinine 1.1
Glucose 97
Calcium 9.3
Vital Signs:
Vital Signs
Temp Pulse Resp BP Pulse Ox
97.6 F 69 16 156/82 100
08/24/24 08:18 08/24/24 08:18 08/24/24 08:18 08/24/24 08:18 08/24/24 08:18
I&O
08/23/24 08/24/24 08/25/24
06:59 06:59 06:59
Intake Total 1170 / 1170 1859
Balance 1170 / 1170 1859
[2024-08-24 11:25] VITALS: BP 127/71
[2024-08-24 11:34] LABS: Glucose - Point of Care 133 mg/dl (70-99)
--- NOTE | 2024-08-24 12:15 | W.PN.ID1 ---
Date of Service
Date of Service: August 24, 2024
Today's Communication
See below.
Assessment / Plan
# Right 4th toe diabetic ulcer with osteomyelitis
# MRSA colonized
- 08/23 s/p toe amp.
OR cx: S. aureus. Path pending
-Suspect surgical cure.
-At time if discharge can transition Vancomycin to doxycycline 100mg po bid through 09/01/24.
# HCV ab positive
- suspect false positive. 2021 HCV ab negative. No risk factors.
- HCV RNA pending
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
Diabetes mellitus type 2
Neuropathy
Dyslipidemia.
History of bilateral lower extremity DVT from sedentary.
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
[facility] end of September 2021 and completed six weeks
of IV vancomycin.
Right 2nd toe amputation
Left 3rd toe osteo s/p amputation ()
Morbid obesity, BMI of 43.
Chief Complaint
-: Other (toe osteo)
Subjective / Review of Systems
No complaints.
Vital Signs / Physical Exam
Vital Signs
Vital Signs
Temp Pulse Resp BP Pulse Ox
97.9 F 63 16 127/71 99
08/24/24 11:25 08/24/24 11:25 08/24/24 11:25 08/24/24 11:25 08/24/24 11:25
Physical Exam
Constitutional: Comfortable
Pulmonary: Clear
Gastrointestinal: Soft, Non Tender, Non Distended and Normal Bowel Sounds
Wound: Other (Right fpot dressing dry)
Neurological: AO x 3
Objective Data
Lab Data
Lab Results
08/24/24 05:49
08/24/24 05:49
Estimated Creat Clear 92 ml/min 08/24/24 05:49
Total Bilirubin 0.9 mg/dl (0.2-1.3) 08/22/24 05:27
AST 26 U/L (17-59) 08/22/24 05:27
ALT 24 U/L (0-50) 08/22/24 05:27
Alkaline Phosphatase 101 U/L (38-126) 08/22/24 05:27
Most recent labs reviewed.
Micro Results:
08/23/24 10:20 Tissue Culture - Preliminary
Toe Staphylococcus aureus
Gram Stain - Preliminary
08/21/24 18:27 MRSA Screen - Final
Nose Staph aureus MRSA
08/21/24 Foot XRAY: Severe soft tissue swelling in the right 4th toe consistent with cellulitis.
Care Review
Plan reviewed with: Physician (Dr. Ace)
[2024-08-24 15:26] VITALS: BP 142/70
[2024-08-24 15:45] VITALS: BP 142/70; PULSE 62; O2SAT 99
[2024-08-24 16:36] LABS: Glucose - Point of Care 135 mg/dl (70-99)
[2024-08-24] MEDS: LIPITOR 40 MG PO (18:07)
[2024-08-24 18:22] LABS: Vancomycin Trough 20.3 ug/ml (5-20)
--- NOTE | 2024-08-24 18:27 | PTCARENOTE ---
Lab informed this RN of critical vanco trough. Result=20.28. Pharmacy called, instructed this RN to complete dose that is running. made aware.
[2024-08-24 21:51] LABS: Glucose - Point of Care 131 mg/dl (70-99)
[2024-08-24 23:07] VITALS: BP 135/77
--- NOTE | 2024-08-25 01:59 | PTCARENOTE ---
Pt rang call burden at approx 2019 to alert this RN that IV site was painful.
On assessment, IV site noted with small infiltrate, vancomycin stopped. VAT notified & restarted pt on new site.
1800 vancomycin dose not able to be completed until approx 2044.
Clinical pharmacist made aware and updated on previous extravasation site at approx 2300.
Pt's call burden within reach, updated on POC
[2024-08-25 07:30] VITALS: BP 149/82
--- NOTE | 2024-08-25 07:42 | W.PN.HOSP.TC ---
Today's Communication/Plan
-
Discharge today
Assessment / Plan
Assessment / Plan
Physical Exam
General: No Apparent Distress, obese.
HEENT: Normocephalic, Moist mucous membranes and Atraumatic
Respiratory: CTAB
Cardiac: S1/S2 and Regular Rhythm.
GI: Soft, Non Tender, Non Distended and Normal Bowel Sounds
Musculoskeletal: No Cyanosis and No Edema
Skin: Right foot covered in dressing
Neuro: Nonfocal/grossly intact, AAOX3.
Psych: Calm, no agitation
Assessment/Plan
# Right fourth toe gangrene due to diabetes
# Cellulitis and ulcer right 4th toe status post amputation of right 4th toe on 08/23/24
# Diabetic with peripheral neuropathy with history of right 2nd and 3rd toe and left 3rd toe amputation
History of right 2nd and 3rd toe and left 3rd toe amputation
s/p amputation by Dr Cornell on 08/23, appeared that all infected and necrotic tissue was removed, surgical cure is suspected
Preliminary culture Staph Aureus. OR culture positive for MRSA.
Per Infectious Disease: 'Transition Vancomycin to doxycycline 100mg po bid through 09/01/24. OK for DC from ID standpoint.'
-s/p IV Vancomycin & Zosyn
Per podiatry: 'Patient is stable for discharge from surgical standpoint. Dressing can stay in tact until follow up in my office 5 days after discharge'
# HCV ab positive
- suspect false positive. 2021 HCV ab negative. No risk factors for Hepatitis C.
- HCV RNA pending
- Pt aware.
#Metabolic Acidosis
- Consulted nephrology, appreciate their evaluation and recommendations
- Start sodium bicarb 650mg daily
- Contact forensic science technician Dr. Pollock's office in 2 to 3 days regarding urine lab results from hospitalization
- Recheck CBC, BMP and Magnesium in 3 to 4 days
# Elevated BP, suspect underlying essential HTN
# Hyperkalemia - RESOLVED
-Follow-up with PCP outpatient about starting Lisinopril (but did have mild hyperkalemia in the hospital, which PCP needs to know about prior to starting Lisinopril)
-Start Amlodipine 2.5 mg daily
# Leukocytosis - resolved
# Type 2 Diabetes Mellitus
# Diabetic Neuropathy
-Follow-up with your PCP this week regarding resuming oral diabetes mellitus medication, since you recently had surgery
-Insulin sliding scale
#History of diabetic foot infection status post amputations of second and third toe
# History of bilateral DVTs from being sedentary
# Dyslipidemia.
#History of Right 3rd toe MRSA osteomyelitis, status post amputation at
[facility] end of September 2021 and completed six weeks
of IV vancomycin.
#History of Right 2nd toe amputation
#Left 3rd toe osteo s/p amputation ()
#Morbid obesity, BMI of 43.
Full code
DVT prophylaxis�heparin
More than 30 minutes spent in discharge including
Final examination of the patient
Summarizing hospital stay
Instructions for continuing care to all relevant caregivers
Preparation of discharge records, prescriptions, and referral forms
Total time spent (in minutes): 37
Anticipated Discharge: Today
Subjective/Interval History
-
Date of Service: August 25, 2024
Patient was seen and examined. He denied any pain or any complaints, said that he feels fine, and he also indicated that he wants to go home today.
Objective Data
-
Vital Signs:
Vital Signs
Temp Pulse Resp BP Pulse Ox
98.1 F 71 18 135/77 99
08/24/24 23:07 08/24/24 23:07 08/24/24 23:07 08/24/24 23:07 08/24/24 23:07
I&O
08/24/24 08/25/24 08/26/24
06:59 06:59 06:59
Intake Total 1860 / 1860 1610 / 1610
Balance 1860 / 1860 1610 / 1610
[2024-08-25 08:06] LABS: % Basophils 0.8 % (0-2); % Eosinophils 4.8 % (0-6); % Immature Granulocytes 0.4 % (0-0.5); % Lymphocytes 21.8 % (20.5-51.1); % Neutrophils 62.2 % (42.2-75.2); Absolute Basophils 0.1 10^3/uL (0-0.2); Absolute Eosinophils 0.4 10^3/uL (0-0.7); Absolute Lymphocytes 1.6 10^3/uL (1.2-3.4); Absolute Monocytes 0.8 10^3/uL (0.1-0.6); Absolute Neutrophils 4.7 10^3/uL (1.4-6.5); Hematocrit 42.4 % (39.0-52.0); Hemoglobin 13.7 g/dL (13.0-18.0); Mean Corp Hgb Conc. 32.3 g/dL (33.0-37.0); Mean Corpuscular Hgb 29.3 pg (27.0-31.0); Mean Corpuscular Volume 90.6 fL (80.0-94.0); Mean Platelet Volume 9.8 fL (7.4-10.4); Nucleated Red Blood Cells % 0 % (-); Platelet Count 255 10^3/uL (130-400); Red Blood Cell Count 4.68 10^6/uL (4.70-6.10); Red Cell Dist. Width 13.5 % (11.5-14.5); White Blood Cell Count 7.5 10^3/uL (4.8-10.8)
[2024-08-25 08:13] LABS: Glucose - Point of Care 104 mg/dl (70-99)
[2024-08-25] MEDS: ASPIR LOW (ENTERIC COATED) 81 MG PO (08:15)
[2024-08-25] MEDS: HEPARIN 5000 UNITS SC (08:15)
[2024-08-25] MEDS: THERAGRAN 1 TABLET PO (08:15)
[2024-08-25 09:22] LABS: Blood Urea Nitrogen 16 mg/dl (9-20); Calcium 9.6 mg/dl (8.4-10.2); Carbon Dioxide 17 mmol/L (22-30); Chloride 109 mmol/L (98-107); Estimated Creatinine Clearance 101 ml/min; Glucose 108 mg/dl (70-99); Potassium 4.7 mmol/L (3.5-5.1); Sodium 140 mmol/L (135-145); eGFR > 60.00
--- NOTE | 2024-08-25 09:44 | W.PN.POD ---
Today's Communication
Today's Communication
Stable surgical site
Defer to ID for outpatient antibiotic therapy
Assessment / Plan
-
Cellulitis and ulcer right 4th toe
-Amputation right 4th toe 08/23/24.
Surgical cure assumed as surrounding soft tissue and bone appear viable.
OR culture positive for MRSA . Appreciate ID input on whether it is necessary to await intraoperative culture/path results if surgical cure suspected.
Afebrile with WBC in normal range
Encourage out of bed and weight bearing with surgical shoe
Stable for discharge from surgical standpoint. Dressing can stay in tact until follow up in my office 5 days after discharge
Diabetic with peripheral neuropathy
-History of right 2nd and 3rd toe and left 3rd toe amputation
History of DVT
Subjective
Objective
Temp Pulse Resp BP Pulse Ox
97.7 F 66 16 149/82 99
08/25/24 07:30 08/25/24 07:30 08/25/24 07:30 08/25/24 07:30 08/25/24 07:30
08/25/24 07:47
08/25/24 07:47
Vital Signs and Lab results were reviewed.
Physical Exam
Physical Exam
incision site stable with sutures in tact and no drainage. no surrounding edema or erythema
--- NOTE | 2024-08-25 10:01 | W.PN.ID1 ---
Date of Service
Date of Service: August 25, 2024
Today's Communication
Transition Vancomycin to doxycycline 100mg po bid through 09/01/24.
OK for DC from ID standpoint.
Assessment / Plan
# Right 4th toe diabetic ulcer with osteomyelitis
# MRSA colonized
- 08/23 s/p toe amp.
- OR cx: MRSA. Path pending
-Suspect surgical cure.
- Transition Vancomycin to doxycycline 100mg po bid through 09/01/24.
# HCV ab positive
- suspect false positive. 2021 HCV ab negative. No risk factors.
- HCV RNA pending
- Pt aware.
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
Diabetes mellitus type 2
Neuropathy
Dyslipidemia.
History of bilateral lower extremity DVT from sedentary.
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
[facility] end of September 2021 and completed six weeks
of IV vancomycin.
Right 2nd toe amputation
Left 3rd toe osteo s/p amputation ()
Morbid obesity, BMI of 43.
Chief Complaint
-: Other (toe osteo)
Subjective / Review of Systems
Feels well.
Vital Signs / Physical Exam
Vital Signs
Vital Signs
Temp Pulse Resp BP Pulse Ox
97.7 F 66 16 149/82 99
08/25/24 07:30 08/25/24 07:30 08/25/24 07:30 08/25/24 07:30 08/25/24 07:30
Physical Exam
Constitutional: No Acute Distress and Comfortable
Pulmonary: Clear
Gastrointestinal: Soft, Non Tender and Non Distended
Neurological: AO x 3
Objective Data
Lab Data
Lab Results
08/25/24 07:47
08/25/24 07:47
Estimated Creat Clear 101 ml/min 11/18/24 07:47
Total Bilirubin 0.9 mg/dl (0.2-1.3) 08/22/24 05:27
AST 26 U/L (17-59) 08/22/24 05:27
ALT 24 U/L (0-50) 08/22/24 05:27
Alkaline Phosphatase 101 U/L (38-126) 08/22/24 05:27
Most recent labs reviewed.
Micro Results:
08/23/24 10:20 Tissue Culture - Preliminary
Toe Staph aureus MRSA
Gram Stain - Preliminary
08/21/24 18:27 MRSA Screen - Final
Nose Staph aureus MRSA
08/21/24 Foot XRAY: Severe soft tissue swelling in the right 4th toe consistent with cellulitis.
--- NOTE | 2024-08-25 12:43 | CM ---
CM following re: discharge planning.
Reviewed pt's chart, met with pt.
According to MD pt is medically stable to be discharged. Pt is aware, expressed his agreement. IMM reviewed, placed on chart, pt has a copy.
PT and OT evaluations noted - pt has no skilled PT/OT needs, independent with functional ability.
D/C plan: home no needs. Family to transport at discharge.
[2024-08-25 12:59] LABS: Glucose - Point of Care 100 mg/dl (70-99)
--- NOTE | 2024-08-25 13:32 | W.CON.NEPH ---
Consultation
-
Date/Time Consultation Requested: 08/25/24 1243
Date/Time Consultation Performed: 08/25/24 1415
Requesting Provider: Ladarius Mitchell
Performing Provider: Lakisha Parker
Reason for Consultation: Met acidosis
Medical History
-
Chief Complaint: Toe infection
History of Present Illness:
68-year-old male past medical history of diabetes on metformin, Trulicity, diabetic neuropathy, prior amputations of left and right lower extremity, bilateral DVTs 9 years ago not on AC, presenting with 2 days of redness, swelling discoloration,
drainage of the right fourth toe on 08/21. 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 He noted to have mild hyperkalemia on admit which resolved however new met acidosis today
hence nephrology consulted. He also noted Hep C +ve but previously negative and PCR pending. h/o K stone many years ago. No CP or sob. No abd pain, no diarrhea. No n/v.
Past Medical History
diabetes, diabetic neuropathy, prior amputations of left and right lower extremity, bilateral DVTs 9 years ago,DLD, obesity, K stone
Past Surgical History: Other (toe amputations)
Social History
Tobacco: Non-Smoker
Alcohol: None
Employment: Retired
Family History
no CKD
Family History: Not Pertinent
Allergies / Home Medications
Allergy/AdvReac Type Severity Reaction Status Date / Time
No Known Allergies Allergy Verified 03/17/22 10:20
�Medication �Instructions �Recorded �Confirmed �Type
aspirin 81 mg tablet,delayed 81 mg PO DAILY Blood clot 03/17/22 08/21/24 History
release prevention/tx
metformin 500 mg tablet 1,000 mg PO BID@0800,1700 Diabetes 03/17/22 08/21/24 History
atorvastatin 40 mg tablet 40 mg PO QPM High Cholesterol 08/21/24 08/21/24 History
dulaglutide 4.5 mg/0.5 mL 4.5 mg SC MARKS Diabetes 08/21/24 08/21/24 History
subcutaneous pen injector
(Trulicity)
dckvhifi-whv-gjysz acid 0.4 1 tab PO DAILY Supplement 08/21/24 08/21/24 History
mg-lycopene 300 mcg-lutein 250 mcg
tablet (Centrum Silver)
Review of Systems
-
All complete 12 point ROS have been inquired and found negative other than stated in HPI
Physical Exam
Vital Signs
Vital Signs
Temp Pulse Resp BP Pulse Ox
97.7 F 66 16 149/82 99
08/25/24 07:30 08/25/24 07:30 08/25/24 07:30 08/25/24 07:30 08/25/24 07:30
Lab Results
WBC 7.5 10^3/uL (4.8-10.8) 08/25/24 07:47
RBC 4.68 10^6/uL (4.70-6.10) L 08/25/24 07:47
Hgb 13.7 g/dL (13.0-18.0) 08/25/24 07:47
Hct 42.4 % (39.0-52.0) 08/25/24 07:47
Plt Count 255 10^3/uL (130-400) 08/25/24 07:47
Sodium 140 mmol/L (135-145) 08/25/24 07:47
Potassium 4.7 mmol/L (3.5-5.1) 08/25/24 07:47
Chloride 109 mmol/L (98-107) H 08/25/24 07:47
Carbon Dioxide 17 mmol/L (22-30) L 08/25/24 07:47
BUN 16 mg/dl (9-20) 08/25/24 07:47
Creatinine 1.0 mg/dL (0.7-1.3) 08/25/24 07:47
eGFR > 60.00 08/25/24 07:47
Glucose 108 mg/dl (70-99) H 08/25/24 07:47
Calcium 9.6 mg/dl (8.4-10.2) 08/25/24 07:47
Albumin 3.7 g/dl (3.5-5.0) 08/22/24 05:27
Physical Exam
General: Awake, Alert, Oriented, AOx3, No Distress and Nontoxic
HEENT: EOMI, Anicteric, Conjunctivae Clear, Facial Symmetry and Neck Supple
Respiratory: Clear, Normal Excursion and Nonlabored Respirations
Cardiac: S1/S2 and Regular Rate/Rhythm
Breast: Deferred by me
Abdomen: Soft, Nontender and Nondistended
Musculoskeletal: Edema (1+chronic per pt)
Skin: No Rash
Neuro: Nonfocal/Grossly Intact
Psych: Insight/judgement good and Appropriate
Data Reviewed
-
Radiology: Report Reviewed by me and Discussed with Patient
Labs: Labs Reviewed by me and Discussed with Patient
Assessment/Plan
-
IMP:
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
History of right 2nd and 3rd toe and left 3rd toe amputation
Hyperkalemia-resolved
Elevated BP, suspect underlying essential HTN
Type 2 diabetes
History of diabetic foot infection status post amputations of second and third toe
History of bilateral DVTs
h/o K stone
PLan:
A/w OM of right 4th toe s/p amputation
on reviewing chart -noted intermittent mild met acidosis and has mild hyperkalemia on admit
not entirely clear if has any RTA type 4-check UA for Ph and U A gap, TTKG
note he is on heparin SQ
would start bicarb 650mg daily
also check ladder scan to r/o retention
BP are high- not on meds before, likely need Amlodipine
he reports h/o microalbuminuria-ACEI would be an option with close monitoring k
Pt eager to get d/c today
BMP 1week, f/u with PCP
nephro if needed
TTKG resulted, seem low-possible RTA
await for other tests to results-f/u with PCP per pt request
[2024-08-25 14:08] LABS: Osmolality Urine 700 mOsm/kg (300-900)
[2024-08-25 14:08] LABS: Osmolality Serum 285 mOsm/kg (275-300)
[2024-08-25 14:18] LABS: Urine Potassium 57.8 mmol/L (30-90)
[2024-08-25 14:37] LABS: Urine Sodium 191 mmol/L (30-90)
[2024-08-25 15:01] LABS: Urine Albumin Negative (Neg - Trace); Urine Bilirubin Negative (Negative); Urine Character Clear (Clear); Urine Color Yellow; Urine Glucose Negative (Negative); Urine Ketone Negative (Negative); Urine Leukocyte Negative (Negative); Urine Nitrite Negative (Negative); Urine Occult Blood Negative (Negative); Urine Urobilinogen Negative (Neg - 1+)
[2024-08-25 16:00] VITALS: BP 160/79
--- NOTE | 2024-08-25 16:12 | W.DCSUMMARY ---
Discharge Summary
Discharge Data
Date of Admission: 08/21/24
Date of Discharge: 08/25/24
Total time spent discharging patient (in min): 37
-
Pending Results: Yes
Additional Pending Results:
Microbiology tissue cultures from hospitalization, Pathology results, Hepatitis C testing results
Hospital Course
68-year-old male with past medical history of diabetes mellitus, diabetic neuropathy, prior amputations of left and right lower extremity, bilateral DVTs ~9 years ago (no longer on anticoagulation, but is monitored by outpatient providers),
presented with 2 days of redness, swelling discoloration of the right fourth toe. Patient was started on broad spectrum antibiotics and podiatry and infectious diseases were consulted. Painter Drum Dr. Cornell took patient to the operating room for
right 4th toe amputation, on 08/23/24, per surgeon Dr. Cornell, it appeared that all infected and necrotic tissue was removed. Zosyn was stopped and patient was continued on Vancomycin. Patient was found to be MRSA positive and the culture from
the surgery also grew MRSA. Infectious Diseases recommended transitioning patient from Vancomycin to Doxycycline 100mg PO BID through 09/01/24. Nephrology was also consulted for worsening metabolic acidosis, and ordered some urine/lab studies which
would need to be followed up outpatient, and they also recommended Sodium Bicarbonate 650 mg daily on discharge. Amlodipine was started on discharge given his high blood pressure.
Discharge Plan
-
Patient Disposition: Home (Routine Discharge)
Discharge Diagnosis/Procedures: # Right fourth toe gangrene due to diabetes
# Cellulitis and ulcer right 4th toe status post amputation of right 4th toe on 08/23/24
# Diabetic with peripheral neuropathy with history of right 2nd and 3rd toe and left 3rd toe amputation
# Hepatitis C Virus antibody positive -- suspected false positive, additional Hep C testing pending at the time of discharge
# Metabolic Acidosis
# Elevated Blood Pressure, suspect underlying essential hypertension
# Hyperkalemia - RESOLVED
# Leukocytosis - resolved
# Type 2 Diabetes Mellitus
# Diabetic Neuropathy
# History of diabetic foot infection status post amputations of second and third toe
# History of bilateral deep vein thromboses from being sedentary
# Dyslipidemia
#History of Right 3rd toe MRSA osteomyelitis, status post amputation at
[facility] end of September 2021 and completed six weeks of intravenous Vancomycin
#History of Right 2nd toe amputation
#Left 3rd toe osteomyelitis status post amputation ()
#Morbid obesity, BMI of 43.
Right Foot X-Ray (as per radiologist's report):
'IMPRESSION:
1. Severe soft tissue swelling in the right 4th toe consistent with cellulitis.
2. No radiographic evidence for acute osteomyelitis.
3. Previous amputation of the right 2nd and 3rd toes.
4. Moderate arthritis of the right 1st MTP joint and interphalangeal joint of the great toe.
5. Mild to moderate polyarticular arthritis throughout the right midfoot and hindfoot.
6. Large plantar calcaneal enthesophyte.
7. Severe peripheral arterial calcific atherosclerotic disease.'
Peripheral Arterial Lower Extremity (as per vascular surgeon)
'IMPRESSION:
1. Right lower extremity: Ankle and toe brachial indices not obtainable secondary to noncompressibility of the vessels. Multiphasic waveforms from common femoral through popliteal artery with no velocity elevation to suggest any significant
stenosis. Continuous Doppler waveforms at the dorsalis pedis and posterior tibial arteries are also multiphasic.
2. Left lower extremity: Ankle and toe brachial indices not obtainable secondary to noncompressibility of the vessels. Multiphasic waveforms from common femoral through popliteal artery with no velocity elevation to suggest any significant stenosis.
Continuous Doppler waveforms at the dorsalis pedis and posterior tibial arteries are also multiphasic.'
Diet: Low Fat, Low Cholesterol, Low Sodium and Diabetic, Carb Controlled
Activity: Other activity
Additional Activity: Follow chemist pharmaceutical's (Dr. Cornell's) instructions regarding any activity restrictions
Activity Restrictions/Additional Instructions:
Contact hob mill operator Dr. Pollock's office in 2 to 3 days regarding urine lab results from hospitalization.
Follow-up Hepatitis C testing that was ordered in the hospital.
Follow-up with your PCP this week regarding when to resume your oral diabetes mellitus medications, given you recently had surgery and should have your labwork rechecked first.
Recheck CBC, BMP and Magnesium with your primary care provider's office in 3 to 4 days.
Surgical dressing can stay intact until follow-up in Dr. Cornell's office 5 days after discharge from hospital.
R 4th toe amp site-local care as per Dr. Cornell.
Any activity restrictions, weight bear restrictions as per chemist pharmaceutical's instructions.
Miconazole powder to sacral crease, affected areas twice a day.
Elevate heels off bed with pillows.
Follow up with Dr. Cornell.
Referrals:
Torrey Fernandez III, MD [Active] - in one to two weeks (Severe peripheral arterial calcific atherosclerotic disease on hospital imaging from August 2024)
Margarette Cornell DPM [Specified Professional Personl] - in 4 days
Torrey Alvarez DO [Family Provider] - in less than 1 week
Additional Discharge Medication Instructions: Amlodipine, Doxycycline, Sodium Bicarbonate are new medications.
Metformin and Trulicity are on hold until follow-up with PCP this week.
Prescriptions:
New
amlodipine 2.5 mg tablet
2.5 mg PO DAILY Qty: 30 0RF
doxycycline hyclate 100 mg Capsule
100 mg PO Q12 Qty: 15 0RF
sodium bicarbonate 650 mg Tablet
650 mg PO DAILY Qty: 20 1RF
Continued
aspirin 81 MG tablet,delayed release (/EC)
81 mg PO DAILY
atorvastatin 40 mg Tablet
40 mg PO QPM
Centrum Silver 0.4 mg-300 mcg- 250 mcg Tablet
1 tab PO DAILY
Held
metformin 500 MG tablet
1,000 mg PO BID@0800,1700
Hold Instructions: Resume on 08/29/24. Discuss with your primary care physician regarding when you should resume this medication.
Trulicity 4.5 mg/0.5 mL Pen Injector
4.5 mg SC MARKS
Hold Instructions: Resume on 08/31/24. Discuss with your primary care physician regarding when you should resume this medication.
Discharge Orders:
Discharge Patient (As Directed); Ordered 08/25/24
Ordered By: Ladarius Jimenez
Discharge Date and Time
Discharge Date/Time: 08/25/24 18:01
Print Language: ROMANIAN
[2024-08-25] MEDS: FLUAD (65 yr+) 2024-2025 FORMULA 0.5 ML IM (16:33)
[2024-08-25] MEDS: LIPITOR 40 MG PO (16:34)
[2024-08-25 21:39] LABS: HCV Quant by NAAT IU/mL Not Detected; HCV Quant by NAAT Interp Not Detected (Not Detected); HCV Quant by NAAT Log IU/mL Not Detected log IU/mL
[2024-08-28 00:52] LABS: 24 Hour Urine Total Volume Random mL; Chloride, Urine 174 mmol/L; Creatinine, Urine per Volume 110 mg/dL; Urine Collection Length Random hr
== END 2024-08-25 18:01 | disposition home or self-care (01) | DRG 617 ==
LOC: 3 WEST ACU 16:17
PROVIDERS: Emergency Medicine; Internal Medicine; Student in an Organized Health Care Education/Training Program; ADMITTING PHYSICIAN Hospitalist; ATTENDING PHYSICIAN Hospitalist; CONSULT PHYSICIAN Internal Medicine; CONSULT PHYSICIAN Podiatrist Foot & Ankle Surgery; EMERGENCY PHYSICIAN Student in an Organized Health Care Education/Training Program; FAMILY PHYSICIAN Internal Medicine; OTHER PHYSICIAN Internal Medicine Infectious Disease
PROC: 0Y6V0Z0 Detachment at Right 4th Toe, Complete, Open Approach (ICD-10-PCS; 2024-08-23)
DX: E11.628 Type 2 diabetes mellitus with other skin complications (principal); E87.20 Acidosis, unspecified; Z68.41 Body mass index [BMI] 40.0-44.9, adult; M86.18 Other acute osteomyelitis, other site; E11.51 Type 2 diabetes mellitus with diabetic peripheral angiopathy without gangrene; E87.5 Hyperkalemia; E66.01 Morbid (severe) obesity due to excess calories; E11.42 Type 2 diabetes mellitus with diabetic polyneuropathy; L03.031 Cellulitis of right toe
CPT/HCPCS: 88304; 88305; 88311; 73620; 73630; 80048; 80053; 80202; 81003; 82436; 82570; 82962; 83036; 83930; 83935; 84133; 84300; 85025; 85027; 86803; 87070; 87147; 87176; 87186; 87205; 87522; 90662; 93922; 93925; 96374; 97161; 99285; G0008

== ENCOUNTER 2024-11-23 16:18 | Inpatient (IN) | payer OTHER, SELFPAY ==
[2024-11-23] VITALS (7 sets, daily range): BP systolic 120–149; BP diastolic 67–79; BMI 40.7; BMI 42.5
--- NOTE | 2024-11-23 12:18 | ED.GENMED ---
History of Present Illness
General
Chief Complaint: Skin Problem
Source: patient
Exam Limitations: none
Time Seen by Provider: 11/23/24 11:53
Nursing documentation reviewed up to this point in time: agreed with
History of Present Illness
History of Present Illness:
69 y/o M with h/o DVT chronic no longer on AC, NIDDM, multiple diabetic foot infections/ causing toe amputations, component inspector dr. guillen
here with R great toe swelilng, redness, wound and drainage after accidentally hitting his foot on a radiator 2 days ago
he looked and didn't see any wounds
swelling started yesterday and then a wound opened up last night
now drainig with redness and swelilng of the great toe
he has not had any systemic sypmtoms like fever
he has neuropathy
chronic swelilng in the calf with venous stasis dermatitis, so his leg is always red
no changes to this
Past History
Past History
ED Past Medical History: NIDDM
ED Past Surgical History: Orthopedic (Amputation of the right third toe)
Social History
Tobacco: Non-smoker
Alcohol: None
Drug: None
Personal:
Living: with family
Employment: Retired
Family History
Family History: Other (Noncontributory)
Review of Systems
Review of Systems
Allergies reviewed?: Yes
All Other Systems: Not applicable
Phy Exam
Physical Exam
Physical Exam:
GENERAL: Alert , in no apparent distress
EYE: pupils equal and reactive
NECK: Supple
ENT: o/p clr, mmm.
CARDIAC: Regular rate and rhythm .
LUNGS: Clear breath sounds bilaterally, no acute respiratory distress, no wheezes/rales/rhonchi
ABDOMEN: Soft, without focal tenderness, no r/g, no cvat, normal bowel sounds
NEUROLOGICAL: Alert and oriented, no focal neuro deficits
SKIN: Warm and dry, skin intact.
MUSCULOSKELETAL: No edema, well perfused. neg elizabeth's sign
PSYCH: Normal and appropriate interaction.
Course
Orders/Labs/Results
Orders:
Orders
11/23/24 12:09
CR Foot - Right Min 3 Views Urgent
Comment:
Reason For Exam: RIGHT GREAT TOE INFECTION,DM
11/23/24 12:24
CRP [C-Reactive Protein] Urgent
Complete Blood Count/With Diff Urgent
Comprehensive Metabolic Panel Urgent
ESR [Erythrocyte Sed Rate] Urgent
Lactic Acid Urgent
Blood Culture Q30M
PALLAVI Source: Blood/Venous
Specimen Description:
Blood Culture Q30M
PALLAVI Source: Blood/Venous
Specimen Description:
11/23/24 16:03
Vancomycin [Vancocin] 2,000 mg 0.9% Sodium Chloride 500 ml [Nss] 500 ml IV NOW
11/23/24 16:08
Admit/Transfer Patient As Directed
Co-Sign Provider:
Level of Care: Inpatient admission
Assign to:: Medical/Surgical
Physician / Group: [email or web address]
Diagnosis: Recurrent diabetic foot infection in Rt great toe
Reason for Hospitalization: Recurrent diabetic foot infection in Rt great toe
Expected length of stay greater than two midnights?: Yes
ELOS- Estimated Length of Stay in days: 4
I certify the patient meets the requirements for IP care: Yes
11/23/24 16:11
Code Status As Directed
Resuscitation Status: Full Code
Abnormal Lab Results
11/23/24
12:24
RBC 4.64 L 10^6/uL
(4.70-6.10)
Absolute Neuts (auto) 7.8 H 10^3/uL
(1.4-6.5)
Neutrophils % 77.1 H %
(42.2-75.2)
Lymphocytes % 14.8 L %
(20.5-51.1)
Carbon Dioxide 19 L mmol/L
(22-30)
BUN 30 H mg/dl
(9-20)
Glucose 106 H mg/dl
(70-99)
C-Reactive Protein 36.50 H mg/L
(0.0-10.00)
11/23/24 12:24
11/23/24 12:24
Vital Signs
Initial and Last Documented VS:
Initial Vital Signs
Pulse Resp BP Pulse Ox
78 18 139/75 100
11/23/24 11:30 11/23/24 11:30 11/23/24 11:30 11/23/24 11:30
Last Documented Vital Signs
Temp Pulse Resp BP Pulse Ox
37.1 C 65 20 144/79 100
11/23/24 12:39 11/23/24 18:27 11/23/24 18:27 11/23/24 18:27 11/23/24 18:27
MDM/Problems Addressed
MDM/Problems Addressed:
sangeeta zapata 69 y/o M DM
followed by dr. guillen podiatry
banged great toe 2 days ago, didn't notice any wounds
last night swelling, redness and today drainage, open wound and worsening redness/swelling
afebrile
wbc normal
awaiting xray
d/w dr. guillen; iv abx, consult her, admit medicine
*Critical Care Note
Total Time (30-74mins, 75-104mins- exclusive of procedures): Not Applicable
ED Attending Note
-
Portions of this chart may have been created with voice recognition software.� Occasional wrong word or��sound alike� substitutions may have occurred due to the inherent limitations of voice recognition software.
Discharge Plan
Departure
Patient Disposition: Admit
Date of Disposition: 11/23/24
Time of Disposition: 13:29
Admit to: Med/Surg
Presentation/result/management discussed w/ accepting MD/DO: Hospitalist
Patient with high blood pressure during this ER visit?: No
Condition: Fair
Covid-19: Not Applicable
Discharge Problem:
Diabetic foot
Interventions
Interventions:
*Risk Screen - Suicide Last Done: 11/23/24 12:39
*General Assessment Last Done: 11/23/24 12:39
*Neglect/Abuse Screening Last Done: 11/23/24 12:39
ED- Fall Risk Assessment Last Done: 11/23/24 12:39
*ED COVID-19 Vaccine History Last Done: 11/23/24 12:39
*Nursing Disposition Last Done: 11/23/24 17:59
ED-Skin Assessment Last Done: 11/23/24 12:39
[2024-11-23 12:44] LABS: % Basophils 0.5 % (0-2); % Eosinophils 1.1 % (0-6); % Immature Granulocytes 0.2 % (0-0.5); % Lymphocytes 14.8 % (20.5-51.1); % Monocytes 6.3 % (1.7-9.3); % Neutrophils 77.1 % (42.2-75.2); Absolute Basophils 0.1 10^3/uL (0-0.2); Absolute Eosinophils 0.1 10^3/uL (0-0.7); Absolute Lymphocytes 1.5 10^3/uL (1.2-3.4); Absolute Monocytes 0.6 10^3/uL (0.1-0.6); Absolute Neutrophils 7.8 10^3/uL (1.4-6.5); Hematocrit 39.7 % (39.0-52.0); Hemoglobin 13.7 g/dL (13.0-18.0); Mean Corp Hgb Conc. 34.5 g/dL (33.0-37.0); Mean Corpuscular Hgb 29.5 pg (27.0-31.0); Mean Corpuscular Volume 85.6 fL (80.0-94.0); Mean Platelet Volume 9.5 fL (7.4-10.4); Nucleated Red Blood Cells % 0 % (-); Platelet Count 255 10^3/uL (130-400); Red Blood Cell Count 4.64 10^6/uL (4.70-6.10); Red Cell Dist. Width 14.1 % (11.5-14.5); White Blood Cell Count 10.1 10^3/uL (4.8-10.8)
[2024-11-23 12:56] LABS: Lactic Acid 1.8 mmol/L (0.7-2.0)
[2024-11-23 13:01] LABS: ALT (SGPT) 29 U/L (0-50); AST (SGOT) 29 U/L (17-59); Albumin 4.7 g/dl (3.5-5.0); Alkaline Phosphatase 125 U/L (38-126); Blood Urea Nitrogen 30 mg/dl (9-20); Calcium 9.8 mg/dl (8.4-10.2); Carbon Dioxide 19 mmol/L (22-30); Chloride 105 mmol/L (98-107); Estimated Creatinine Clearance 97 ml/min; Glucose 106 mg/dl (70-99); Potassium 4.4 mmol/L (3.5-5.1); Sodium 137 mmol/L (135-145); Total Bilirubin 1.2 mg/dl (0.2-1.3); Total Protein 7.2 g/dl (6.3-8.2); eGFR > 60.00
[2024-11-23 13:17] LABS: Erythrocyte Sed Rate 13 mm/hour (0-20)
--- NOTE | 2024-11-23 15:50 | HPS.HSE ---
Family Physician
-
Family Physician: Torrey Alvarez
Chief Complaint
-
R great toe swelling, redness,
History of Present Illness
69M, HX chronic DVT chronic, no longer on AC, NIDDM, multiple diabetic foot infections c/b multiple toes amputations, diabetic neuropathy followed by language specialist Dr. Kraig brock at ER:
- R great toe swelling, redness, wound and drainage after accidentally hitting his foot on a radiator 2 days ago
- swelling since yesterday and then a wound opened up last night and drainig
- no fever
- HX chronic swelling in the calf with venous stasis dermatitis,
Medical History
Past Medical History
Past Medical History: Reports Other (diabetes, diabetic neuropathy, prior amputations of left and right lower extremity, bilateral DVTs 9 years ago,)
Past Surgical History: Reports None
Social History
Tobacco: Non-smoker
Alcohol: None
Drug: None
Family History
Family History: Not pertinent
Allergies / Home Medications
Allergies reflects when Allergies were last updated in [facility] [employer].
Home Medications with original date entered in [facility]
Allergy/Medication List:
Allergies
Allergy/AdvReac Type Severity Reaction Status Date / Time
No Known Allergies Allergy Verified 03/17/22 10:20
Home Medications
aspirin 81 mg tablet,delayed release 81 mg PO DAILY Blood clot prevention/tx 03/17/22
metformin 500 mg tablet 1,000 mg PO BID@0800,1700 Diabetes 03/17/22
atorvastatin 40 mg tablet 40 mg PO QPM 08/21/24
dulaglutide 4.5 mg/0.5 mL subcutaneous pen injector (Trulicity) 4.5 mg SC MARKS 08/21/24
yzqmydru-uqs-xdmgs acid 0.4 mg-lycopene 300 mcg-lutein 250 mcg tablet (Centrum Silver) 1 tab PO DAILY 08/21/24
Review of Systems
-
Constitutional: Reports No Symptoms
EENT: Reports No Symptoms
Respiratory: Reports No Symptoms
Cardiac: Reports No Symptoms
Abdomen/GI: Reports No Symptoms
: Reports No Symptoms
Musculoskeletal: Reports No Symptoms
Skin: Reports See HPI
Neurological: Reports No Symptoms
Endocrine: Reports No Symptoms
Hematologic/Lymphatic: Reports No Symptoms
Psych: Reports No Symptoms
Physical Exam
Vital Signs
Vital Signs
Temp Pulse Resp BP Pulse Ox
98.7 F 77 20 120/67 100
11/23/24 12:39 11/23/24 12:39 11/23/24 12:39 11/23/24 12:39 11/23/24 12:39
Physical Exam
General: Well Developed, Well Nourished and No Apparent Distress
HEENT: NormoCephalic, Moist mucous membranes and Atraumatic
Respiratory: Clear
Cardiac: S1/S2 and Regular Rhythm; No Murmur or Rub
GI: Soft, Non Tender, Non Distended and Normal Bowel Sounds; No Organomegaly
Rectal: Deferred by Provider
Musculoskeletal: No Clubbing, No Cyanosis and No Edema
Skin: Decubitus Ulcers (R great toe swelilng, redness, wound and drainage) and Other (Rt 4th toe status post amputation of Rt 4th toe , status post amputation Rt 2nd toe amputation Lt. 3rd toe osteomyelitis status post amputation); No Rash
Neuro: Nonfocal/grossly intact
Psych: Calm
Laboratory Results
-
11/23/24 12:24
11/23/24 12:24
Laboratory Results
Lactic Acid 1.8 mmol/L (0.7-2.0) 11/23/24 12:24
Total Bilirubin 1.2 mg/dl (0.2-1.3) 11/23/24 12:24
AST 29 U/L (17-59) 11/23/24 12:24
ALT 29 U/L (0-50) 11/23/24 12:24
Alkaline Phosphatase 125 U/L (38-126) 11/23/24 12:24
Data Reviewed
-
CT Scan: Other (pending XR )
Lab Data: Labs Reviewed by me
Old Records: Reviewed
Impression/Plan
-
Reviewed VS:
Data
WCC 10.1
CO2 19
BUN 30
eGFR > 60
BG 106
LA 1.8
CRP 36
Last hospitalist admission:
Date of Admission: 08/21/24 - Date of Discharge: 08/25/24
ASSESSMENT & PLAN
Pending Rx reconciliation
Recurrent diabetic foot infection in Rt great toe s/p blunt injury
Underlying chr venous stasis dermatitis
Diabetic with peripheral neuropathy
Of note: HX multple toe amputees due to OM of diabetic neuropathic foot
HX Rt 4th toe status post amputation @ on 08/23/2024
HX Rt 3rd toe amputation at [facility] end of September 2021
HX Rt 2nd toe amputation
HX Lt. 3rd toe amputation 04/2022
- Pending Rt foot XR
- MRI of Rt foot
- Elevated CRP
- Empiric IV Vancomycin and Zosyn
- Optics Manufacturing Technician consulted
T2DM
- add ISS low
- hold Metformin
HLD
- c/w atorvastatin
Known HX
Hepatitis C Virus antibody positive
Essential hypertension
HX bilateral DVT from being sedentary
Morbid obesity, BMI of 43.
DVT Px: SQH
Code: Full
IP MS
[2024-11-23] MEDS: VANCOCIN 540 MG IV (17:09)
--- NOTE | 2024-11-23 17:59 | EDRN ---
this RN called the receiving unit nurse and notified them that paper report was going to be tubed up, this RN also notified them that vanco was still currently running
--- NOTE | 2024-11-23 18:27 | EDRN ---
Carla from pharmacy called this RN and notified this RN of Unasyn order time change
--- NOTE | 2024-11-23 20:16 | PHA.VAN.IN ---
Addendum entered and electronically signed by Anahy Lucio Tony 11/24/24 11:16:
Prior dosing experience with Vanc 1500mg Q12H provided the following patient-specific PK:
AUC 577
ke = 0.0362
half-life 19.1 H
Extrapolated Cmax 28.9 mcg/ml (*peak drawn > 3H after anticipated end of prior infusion, may lead to underestimation of peak/AUC from true values and overestimation of half-life)
Extrapoalted Cmin 19.7 mcg/ml
Vd = 143.5 L (~ 1 L/kg)
Vanc Cl = 86.5 ml/min (5.2 L/h)
Levels were drawn after 4th maintenance dose - patient weighs ~ 140kg and may not fully have been at steady state - additional accumulation expected
*Of note, infusion prior to the peak infiltrated. New IV site was obtained and unclear when infusion ended and impact of interruptions to infusion to peak timing.
Given elevated trough but unclear impact from timing issues with infiltration, a repeat trough was obtained ~12H after AM dose and remained elevated at 20.3.
Patient does not follow population PK and estimated CrCl is likely overestimated from patient's true clearance due to BMI / weight.
Original Note:
Assessment
- Assessment
Renal Function: Appears similar to baseline
Maximum Temperature: 98.7
Minimum Temperature: 97.4
Concomitant Antimicrobials: AMP/SULB 3GM Q6
- Previous Dosing Experience
Previous Regimen: 1500MG Q12H
Date of Regimen: 08/21/24
Provided Trough of: 12 (actual trough collected on 08/24/24 was 19.4)
Provided AUC of: 498
AUC Dosing Plan
- Empiric Dosing
Initial / Loading Dose: 2000mg 11/23/24
Maintenance Regimen: 1250mg Q12H
Estimated AUC (mcg*h/mL): 444
Estimated Peak (mcg*h/mL): 27.7
Estimated Trough (mcg/ml): 11.4
Estimated Half Life (H): 8.2
Will follow a lower dosing regimen. It seems that patient was accumulating with previous dosing regimen
- Monitoring
No levels ordered at this time: consider levels in next few days
Pharmacokinetics Vancomycin I
- -
Patient Age: 69
Patient Sex: Male
Vancomycin Day #: 1
Indication: Skin And Soft Tissue
Requesting Provider: YVETTE
Pertinent Antimicrobial Allergies:
NKDA
Height / Weight:
Height 6 ft
Actual Weight 141.974 kg
Pertinent Past Medical History: DVT, DM
- Vital Signs / Lab Results
Temp Pulse Resp BP Pulse Ox
97.4 F 69 18 146/74 100
11/23/24 20:04 11/23/24 20:04 11/23/24 20:04 11/23/24 20:04 11/23/24 20:04
Lab Results - Hematology
11/23/24
12:24
WBC 10.1
Lab Results - Chemistry
11/23/24
12:24
BUN 30 H
Creatinine 1.0
Estimated Creat Clear 97
Albumin 4.7
11/23/24
12:24
Lactic Acid 1.8
[2024-11-23] MEDS: LIPITOR 40 MG PO (20:36)
[2024-11-23] MEDS: UNASYN IV (20:36)
[2024-11-23 21:34] LABS: Glucose - Point of Care 109 mg/dl (70-99)
[2024-11-23] MEDS: HEPARIN 5000 UNITS SC (23:41)
[2024-11-24] MEDS: UNASYN IV ×4 (03:28→21:20)
[2024-11-24] MEDS: VANCOCIN 275 MG IV ×2 (06:00→17:19)
[2024-11-24 07:15] VITALS: BP 141/77
[2024-11-24 07:21] LABS: Glucose - Point of Care 97 mg/dl (70-99)
[2024-11-24] MEDS: HEPARIN 5000 UNITS SC ×3 (07:46→23:09)
[2024-11-24] MEDS: ASPIR LOW (ENTERIC COATED) 81 MG PO (07:46)
--- NOTE | 2024-11-24 08:57 | CON.MD ---
Consultation - Medical
-
69 year old male known to our service presented to the ED 11/23/24 with right foot cellulitis. He states hitting the great toe on a radiator while getting out of bed 2 days ago, then noticed increased swelling and redness to the area. He denies
fever, chills.
PMH includes recurrent DVTs, DM with peripheral neuropathy, venous stasis dermatitis.
On exam, pedal pulses are palpable bilaterally with right foot edema and erythema noted. Erythema is localized to the first ray, but edema is present in both the great toe and 5th toe. Wound on the great toe present at the IPJ dorsally and probes
to deep tissue but not bone. 5th toe ulceration with no purulent drainage but probes to bone. Patient is not responsive to painful stimuli due to neuropathy. Stable amputation sites at the left 3rd toe and right 2,3,4 digits.
Patient is currently afebrile with WBC 10.2. HgbA1c pending. Radiographs show no cortical erosion at the hallux, but focal erosion of the 5th proximal phalanx which correlates to the ulceration present.
Impression/plan
-Cellulitis right foot with ulcers hallux IP and 5th toe
-Responding to IV Vanco/Zosyn as clinical appearance has improved from admission
-Radiographs show likely osteomyelitis 5th toe but suspected also in hallux due to depth of wound. MRI ordered
-Diabetes Mellitus with peripheral neuropathy
-Hx DVT
[2024-11-24 09:20] LABS: Hemoglobin 13.5 g/dL (13.0-18.0); Mean Corp Hgb Conc. 33.8 g/dL (33.0-37.0); Mean Corpuscular Hgb 29.2 pg (27.0-31.0); Mean Corpuscular Volume 86.4 fL (80.0-94.0); Mean Platelet Volume 9.9 fL (7.4-10.4); Platelet Count 241 10^3/uL (130-400); Red Blood Cell Count 4.63 10^6/uL (4.70-6.10); White Blood Cell Count 7.2 10^3/uL (4.8-10.8)
[2024-11-24 09:57] LABS: Blood Urea Nitrogen 23 mg/dl (9-20); Calcium 9.1 mg/dl (8.4-10.2); Carbon Dioxide 19 mmol/L (22-30); Chloride 107 mmol/L (98-107); Estimated Creatinine Clearance 110 ml/min; Glucose 98 mg/dl (70-99); Potassium 4.4 mmol/L (3.5-5.1); Sodium 137 mmol/L (135-145); eGFR > 60.00
[2024-11-24 10:31] LABS: Glycohemoglobin (HgbA1c) 6.1 % (4.0-5.6)
--- NOTE | 2024-11-24 11:13 | PHA.VAN.FU ---
Vancomycin Assessment / Plan
- Assessment
Renal Function: Stable
WBC's are: WNL
In the past 24 hrs, patient has been: Afebrile
Concomitant Antimicrobials: ampicillin/sulbactam
- Dosing Plan
Adjust Regimen to: dosing by level after 1800 dose of 1250mg tonight
Based on prior dosing experience, patient does not follow population PK
Timing and accuracy of prior levels unclear due to an infiltration and interruption to infusion of dose prior to peak; however, both trough values were elevated. Additionally, patient likely had not fully accumulated given weight > 100kg.
Anticipate patient requires prolonged re-dosing interval of Q24H or greater and that patient has elevated half-life based on prior experience
Patient likely slow to reach steady state with weight > 100kg - will keep as Q12H through today to help reach steady state and follow levels to trend and determine interval (patient had elevated trough after 4 doses of 1500mg + 2g load during prior
experience vs this admission patient will receive 2g + 2 doses of 1250mg prior to random in AM)
- Monitoring Plan
Random Level: 11/25 0600
- Follow Up
Pharmacy will continue to follow.
Vancomycin Follow UP
- -
Patient Age: 69
Patient Sex: Male
Vancomycin Day #: 2
Indication: Skin And Soft Tissue
Requesting Provider: Dr. Mancilla
Pertinent Antimicrobial Allergies:
NKDA
Height / Weight:
Height 6 ft
Actual Weight 141.974 kg
Pertinent Past Medical History: BMI ~42, DM
- Vital Signs / Lab Results
Temp Pulse Resp BP Pulse Ox
97.5 F 70 17 141/77 96
11/24/24 07:15 11/24/24 07:15 11/24/24 07:15 11/24/24 07:15 11/24/24 07:15
Lab Results - Hematology
11/23/24 11/24/24
12:24 07:46
WBC 10.1 7.2
Lab Results - Chemistry
11/23/24 11/24/24
12:24 07:46
BUN 30 H 23 H
Creatinine 1.0 0.9
Estimated Creat Clear 97 110
Albumin 4.7
11/23/24
12:24
Lactic Acid 1.8
--- NOTE | 2024-11-24 11:21 | CM ---
CM reviewed chart, patient seen bedside, initial assessment completed. Patient resides with his in a ranch style home with basement, three steps to enter through front door, four steps to enter through back door, full flight of steps to
basement. Patient reports he and his are both retired. Patient denies DME in home, reports VN in past after having home IV antibiotics, denies SNF. Patient PCP Torrey Alvarez, [address], confirms prescription coverage, utilizes
[facility] for home delivery. Patient denies insecurities at home. Patient on IV antibiotics. CM will continue to follow for all discharge planning needs.
Plan; home with , watch for possible VN needs.
[2024-11-24 13:11] LABS: Glucose - Point of Care 110 mg/dl (70-99)
--- NOTE | 2024-11-24 14:58 | W.PN.HOSP.TC ---
Today's Communication/Plan
-
IV antibiotics
Assessment / Plan
Assessment / Plan
Impression:
Diabetic foot infection/cellulitis of the right foot with ulcers of the hallux IP and the fifth toe
Diabetic neuropathy
Status post left third, right 2, 3, 4 digit amputation
Conditions prior to admission:
Type 2 diabetes with neuropathy
Dyslipidemia
Plan:
Diabetic foot infection, complicated cellulitis with wound at the IPJ dorsally, fifth toe ulceration with no purulent discharge.
No systemic symptoms
Afebrile with normal WBC.
No clinical evidence of arterial insufficiency
Hemoglobin A1c 6.1
Noted prior mutations and prior tissue culture with MRSA
MRI with no evidence of abscess, collection or osteomyelitis
Continue wound care.
IV antibiotics: Vancomycin/Unasyn
ID consultation
Type 2 diabetes, not on insulin.
Hemoglobin A1c 6.1.
Preadmission regimen Trulicity and metformin.
Continue basal bolus protocol
Carb controlled diet
Resume metformin
Anticipated Discharge: 24 - 48 hours
Subjective/Interval History
-
Date of Service: November 24, 2024
Objective Data
-
Labs:
Laboratory Results
11/24/24
07:46
WBC 7.2
Hgb 13.5
Hct 40.0
Plt Count 241
Sodium 137
Potassium 4.4
Chloride 107
Carbon Dioxide 19 L
BUN 23 H
Creatinine 0.9
Glucose 98
Calcium 9.1
Vital Signs:
Vital Signs
Temp Pulse Resp BP Pulse Ox
97.5 F 70 17 141/77 96
11/24/24 07:15 11/24/24 07:15 11/24/24 07:15 11/24/24 07:15 11/24/24 07:15
I&O
11/23/24 11/24/24 11/25/24
06:59 06:59 06:59
Intake Total 240 / 240
Balance 240 / 240
Physical Exam
-
General: Well Developed and No Apparent Distress
HEENT: Normocephalic, Atraumatic and Moist Mucous Membranes
Respiratory: Clear to Auscultation
Cardiac: Regular Rhythm and S1/S2; Negative Murmur, Rub or Gallop
GI: Soft, Nontender, Nondistended and Normal Bowel Sounds; Negative Organomegaly
Rectal: Deferred by Provider
Musculoskeletal: No Clubbing, No Cyanosis and No Edema
Skin: Negative Rash
Neuro: Nonfocal/Grossly Intact
[2024-11-24 15:10] VITALS: BP 152/79
--- NOTE | 2024-11-24 16:01 | CON.ID ---
Consultation
-
Date/Time Consultation Requested: 11/24/2024 1245
Date/Time Consultation Performed: 11/24/2024 1600
Requesting Provider: Dr. Harrell
Performing Provider: Dr. Mckenzie
Reason for Consultation: Right hallux infection
Chief Complaint / Past History
History of Present Illness
Angel Braxton is a 69-year-old man being evaluated at the request of Dr. Harrell regarding right hallux cellulitis. History is obtained from chart review, along with patient interview.
The patient has an underlying history of diabetes mellitus, along with a history of right lower extremity DVT (9 years ago). He is known to the Infectious Diseases service, having been seen in mid August for a right fourth toe ulcer and
osteomyelitis. At that time he underwent resection of his right fourth toe and completed a course of antibiotics. He reports he did well since that time, but on approximately 11/21 he was walking and struck his right foot on the radiator. Over the
next 2 days he developed increasing erythema and swelling, with subsequent bloody drainage from the hallux. He was in contact with Podiatry who evaluated him and sent him to the emergency room for further workup.
And further history he had been in a cam boot through early October, during which time he developed an blister and ulceration on his right fifth toe, and had been on a course of Keflex which finished approximately 1 week prior to him striking his
hallux. He notes minimal to no discomfort, but has underlying history of diabetic neuropathy. He denies any fevers or chills.
Past History
Additional Past Medical History:
DM
Venous insufficiency
Hx right lower extremity DVT
Additional Past Surgical History:
Right second, third and fourth toe amputations
Allergy History:
No Known Allergies Allergy (Verified 03/17/22 10:20)
Medications Reviewed: Yes
Current Antibiotics:
Unasyn 3 g IV every 6 hours
Vancomycin (dosing per pharmacy)
Social History
Tobacco: Non-Smoker
Alcohol: None
Drug: None
Personal:
Living: With Family
Employment: Retired
Family History
Family History: Not Pertinent
Review of Systems
Vital Signs
Temp Pulse Resp BP Pulse Ox
97.5 F 70 17 141/77 96
11/24/24 07:15 11/24/24 07:15 11/24/24 07:15 11/24/24 07:15 11/24/24 07:15
Physical Exam
Physical Exam
Constitutional: No Acute Distress, Comfortable and Non-toxic
Eyes: No Conjunctival Hemorrhage and Sclera Anicteric
Oral: No Thrush and No Ulcers
Cardiovascular: Regular Rate and S1/S2; Negative S3/S4 or Murmur
Pulmonary: Clear and Non Labored
Gastrointestinal: Non Tender, Non Distended and Normal Bowel Sounds
Genito-Urinary: Negative Fernandez or CVA Tenderness
Extremities: Edema and Erythema (Right hallux and right fifth toe)
Skin: Warm and Dry; Negative Rash or Jaundice
Neurological: Awake and Alert
Psychological: Calm
.
Lab / Diagnostic Study Results
11/24/24 07:46
11/24/24 07:46
Abs Immat Gran (auto) 0.0 10^3/uL (0-0.05) 11/23/24 12:24
Absolute Neuts (auto) 7.8 10^3/uL (1.4-6.5) H 11/23/24 12:24
Absolute Lymphs (auto) 1.5 10^3/uL (1.2-3.4) 11/23/24 12:24
Absolute Monos (auto) 0.6 10^3/uL (0.1-0.6) 11/23/24 12:24
Absolute Basos (auto) 0.1 10^3/uL (0-0.2) 11/23/24 12:24
Immature Gran % 0.2 % (0-0.5) 11/23/24 12:24
Neutrophils % 77.1 % (42.2-75.2) H 11/23/24 12:24
Lymphocytes % 14.8 % (20.5-51.1) L 11/23/24 12:24
Monocytes % 6.3 % (1.7-9.3) 11/23/24 12:24
Eosinophils % 1.1 % (0-6) 11/23/24 12:24
Basophils % 0.5 % (0-2) 11/23/24 12:24
ESR 13 mm/hour (0-20) 11/23/24 12:24
Lactic Acid 1.8 mmol/L (0.7-2.0) 11/23/24 12:24
C-Reactive Protein 36.50 mg/L (0.0-10.00) H 11/23/24 12:24
Microbiology Results
Micro:
11/23/24 12:24 Blood Culture - Preliminary
Blood/Venous No Growth in 24 hours- Final report to follow
11/23/24 12:24 Blood Culture - Preliminary
Blood/Venous No Growth in 24 hours- Final report to follow
11/24/24 03:35 MRSA Screen - Pending
Nose
Imaging:
11/24/2024 MRI right lower extremity: There is a soft tissue defect with enhancement and edema in the adjacent soft tissues along the distal medial aspect of the great toe which likely represents superficial infectious process. No evidence of focal
collection or abscess. There is no evidence of underlying osteomyelitis within the great toe. There is edema and enhancement within the soft tissues of the fifth toe with findings of possible osteoarthritis of the distal proximal phalanx and
middle phalanx. Please see full dictation for additional detail.
11/23/2024 X-ray right foot: First digit soft tissue swelling without radiographic evidence of osteomyelitis.
Assessment / Plan
Right hallux cellulitis
Elevated CRP
Hx MRSA colonization
DM
Venous insufficiency
Hx right lower extremity DVT
Recommendations:
Continue with empiric Unasyn and vancomycin for today.
Follow for clinical improvement.
Follow pending cultures.
Lower extremity elevation.
Monitor white count and temperature curve.
[2024-11-24 16:50] LABS: Glucose - Point of Care 113 mg/dl (70-99)
[2024-11-24] MEDS: GLUCOPHAGE 1000 MG PO (17:19)
[2024-11-24] MEDS: LIPITOR 40 MG PO (17:19)
[2024-11-24 20:57] LABS: Glucose - Point of Care 124 mg/dl (70-99)
[2024-11-24] MEDS: TYLENOL 650 MG PO (21:45)
[2024-11-24 23:30] VITALS: BP 133/66
[2024-11-25] MEDS: UNASYN IV ×2 (04:39→10:22)
[2024-11-25 07:00] VITALS: BP 140/64
[2024-11-25 08:38] LABS: Vancomycin Random 14.2 ug/ml
[2024-11-25 08:45] LABS: Glucose - Point of Care 194 mg/dl (70-99)
--- NOTE | 2024-11-25 09:20 | PHA.VAN.FU ---
Vancomycin Assessment / Plan
- Assessment
Renal Function: No New Labs Today
In the past 24 hrs, patient has been: Afebrile
- Assessment - Therapeutic Drug Monitoring
Random Level: 14.2 - drawn ~13H after 2nd dose of 1250mg
- Dosing Plan
Dosing by Level: Re-dose today (Vanc 1500mg)
Patient does not follow population PK based on prior dosing experience
Trial 1500mg once daily dosing
Patient may take longer to reach steady state due to weight > 100kg
- Monitoring Plan
Random Level: 11/26 06
- Follow Up
Pharmacy will continue to follow.
Vancomycin Follow UP
- -
Patient Age: 69
Patient Sex: Male
Vancomycin Day #: 3
Indication: Skin And Soft Tissue
Requesting Provider: Dr. Mancilla / [facility]
Pertinent Antimicrobial Allergies:
NKDA
Height / Weight:
Height 6 ft
Actual Weight 141.974 kg
Pertinent Past Medical History: BMI ~42, DM
- Vital Signs / Lab Results
Temp Pulse Resp BP Pulse Ox
97.5 F 76 16 133/66 99
11/24/24 23:30 11/24/24 23:30 11/24/24 23:30 11/24/24 23:30 11/24/24 23:30
Lab Results - Hematology
11/23/24 11/24/24
12:24 07:46
WBC 10.1 7.2
Lab Results - Chemistry
11/23/24 11/24/24
12:24 07:46
BUN 30 H 23 H
Creatinine 1.0 0.9
Estimated Creat Clear 97 110
Albumin 4.7
11/23/24
12:24
Lactic Acid 1.8
Microbiology Results
11/24/24 03:35 MRSA Screen - Final
Nose No Methicillin Resistant Staphylococcus aureus isolated.
11/23/24 12:24 Blood Culture - Preliminary
Blood/Venous No Growth in 24 hours- Final report to follow
11/23/24 12:24 Blood Culture - Preliminary
Blood/Venous No Growth in 24 hours- Final report to follow
Therapeutic Drug Monitoring
Random Vancomycin 14.2 ug/ml 11/25/24 06:36
[2024-11-25] MEDS: HEPARIN 5000 UNITS SC (10:23)
[2024-11-25] MEDS: ASPIR LOW (ENTERIC COATED) 81 MG PO (10:23)
[2024-11-25] MEDS: GLUCOPHAGE 1000 MG PO (10:23)
[2024-11-25] MEDS: VANCOCIN 530 MG IV (11:47)
[2024-11-25 11:50] LABS: Glucose - Point of Care 113 mg/dl (70-99)
--- NOTE | 2024-11-25 12:40 | W.PN.POD ---
Today's Communication
Today's Communication
No surgical intervention needed
Ok for discharge pending ID recommendations for outpatient antibiotic therapy
Instructions given to patient to follow up in my office
Assessment / Plan
-
Cellulitis right foot with ulcer right hallux and 5th toe
-Edema and erythema resolving
-Patient afebrile with WBC wnl
-MRI negative for osteomyelitis in hallux or 5th toe and also negative for abscess
-Surgical intervention is not warranted at this time. Continue dry dressing changes and use of surgical shoe when ambulating
Patient will call my office next week for follow up visit and is able to perform home wound care himself
-Defer to ID for recommendation of appropriate outpatient antibiotic therapy
Diabetes Mellitus with peripheral neuropathy and multiple previous digital amputations
Subjective
Chief Complaint
Patient admitted with right foot cellulitis
Subjective
Patient resting comfortably in bed with no complaints
Objective
Temp Pulse Resp BP Pulse Ox
98.3 F 73 20 140/64 99
11/25/24 07:00 11/25/24 07:00 11/25/24 07:00 11/25/24 07:00 11/25/24 07:00
11/24/24 07:46
11/24/24 07:46
Vital Signs and Lab results were reviewed.
Review of Systems
Review of Systems
Review of Systems: No Fever and No Chills
Physical Exam
Physical Exam
Right foot with decreased edema and erythema. Minimal drainage from hallux ulcer which probes only to deep tissue. Dry skin and callous noted right 5th toe and plantar distal hallux as cellulitis resolves
--- NOTE | 2024-11-25 14:43 | W.PN.ID1 ---
Date of Service
Date of Service: November 25, 2024
Today's Communication
transition to oral augmentin and doxy
Assessment / Plan
Right hallux cellulitis
Elevated CRP
Hx MRSA colonization
DM
Venous insufficiency
Hx right lower extremity DVT
Recommendations:
scant drainage noted from right hallux; cultures
Given improvement in clinical exam and negative findings on imaging, can D/C on augmentin 875 mg PO BID / Doxycycline 100 mg BID; to complete 10 additional days of Tx.
Patient will watch for any regression of improvement and understands that in that scenario, IV abx may be necessary.
Lower extremity elevation.
Chief Complaint
-: Cellulitis
Subjective / Review of Systems
Review of Systems: No Fever and No Chills
Vital Signs / Physical Exam
Vital Signs
Vital Signs
Temp Pulse Resp BP Pulse Ox
98.3 F 73 20 140/64 99
11/25/24 07:00 11/25/24 07:00 11/25/24 07:00 11/25/24 07:00 11/25/24 07:00
Physical Exam
Constitutional: No Acute Distress, Comfortable and Non-toxic
Eyes: Sclera Anicteric
Pulmonary: Non Labored
Gastrointestinal: Non Distended and Normal Bowel Sounds
Extremities: Edema (left hallux) and Erythema (left foot; slight decrease from yesterday)
Neurological: Awake and Alert
Psychological: Calm
Objective Data
Lab Data
Lab Results
11/24/24 07:46
11/24/24 07:46
ESR 13 mm/hour (0-20) 11/23/24 12:24
Estimated Creat Clear 110 ml/min 11/24/24 07:46
Lactic Acid 1.8 mmol/L (0.7-2.0) 11/23/24 12:24
Total Bilirubin 1.2 mg/dl (0.2-1.3) 11/23/24 12:24
AST 29 U/L (17-59) 11/23/24 12:24
ALT 29 U/L (0-50) 11/23/24 12:24
Alkaline Phosphatase 125 U/L (38-126) 11/23/24 12:24
C-Reactive Protein 36.50 mg/L (0.0-10.00) H 11/23/24 12:24
Most recent labs reviewed.
Micro Results:
11/23/24 12:24 Blood Culture - Preliminary
Blood/Venous No Growth in 48 hours- Final report to follow
11/23/24 12:24 Blood Culture - Preliminary
Blood/Venous No Growth in 48 hours- Final report to follow
11/24/24 03:35 MRSA Screen - Final
Nose No Methicillin Resistant Staphylococcus aureus isolated.
Imaging:
11/24/2024 MRI right lower extremity: There is a soft tissue defect with enhancement and edema in the adjacent soft tissues along the distal medial aspect of the great toe which likely represents superficial infectious process. No evidence of focal
collection or abscess. There is no evidence of underlying osteomyelitis within the great toe. There is edema and enhancement within the soft tissues of the fifth toe with findings of possible osteoarthritis of the distal proximal phalanx and
middle phalanx. Please see full dictation for additional detail.
11/23/2024 X-ray right foot: First digit soft tissue swelling without radiographic evidence of osteomyelitis.
Care Review
Plan reviewed with: Physician (Hospitalist)
[2024-11-25 15:00] VITALS: BP 136/65
--- NOTE | 2024-11-25 15:02 | W.DS.TRANS ---
DC Summary - [employer]
-
Discharge Instructions:
Discharge Diagnosis/Procedures Impression:
Diabetic foot infection/cellulitis of the right
foot with ulcers of the hallux IP and the fifth
toe
Diabetic neuropathy
Status post left third, right 2, 3, 4 digit
amputation
Conditions prior to admission:
Type 2 diabetes with neuropathy
Dyslipidemia
Diet Diabetic, Carb Controlled
Instructions:
Stand-Alone Forms:
Changes to Home Medications: Yes
Discharge Medications:
DC Medications w/original date entered in [facility] [employer]
aspirin 81 mg tablet,delayed release 81 mg PO DAILY Blood clot prevention/tx 03/17/22
metformin 500 mg tablet 1,000 mg PO BID@0800,1700 Diabetes 03/17/22
atorvastatin 40 mg tablet 40 mg PO QPM High Cholesterol 08/21/24
dulaglutide 4.5 mg/0.5 mL subcutaneous pen injector (Trulicity) 4.5 mg SC MARKS Diabetes 08/21/24
amoxicillin 875 mg-potassium clavulanate 125 mg tablet 1 tab PO BID #20 tabs 11/25/24
doxycycline hyclate 100 mg tablet 100 mg PO BID #20 tabs 11/25/24
Home Medication Changes
Antibiotic course for additional 10 days
Pending Results: Yes
Additional Pending Results:
Repeated right gr toe wound culture
--- NOTE | 2024-11-25 15:18 | CM ---
CM reviewed chart and noted dc order
Plan for oral abx on dc
Bedside meeting with pt- no dc needs noted
IMM verbally reviewed-copy provided
Son will transport home
Discharge Disposition- home, no needs, son will transport
== END 2024-11-25 17:23 | disposition home or self-care (01) | DRG 638 ==
LOC: 4 WEST ACU 16:18
PROVIDERS: Physician Assistant; ADMITTING PHYSICIAN Internal Medicine; ATTENDING PHYSICIAN Internal Medicine; CONSULT PHYSICIAN Podiatrist Foot & Ankle Surgery; EMERGENCY PHYSICIAN Emergency Medicine; FAMILY PHYSICIAN Internal Medicine; OTHER PHYSICIAN Internal Medicine Infectious Disease
DX: E11.628 Type 2 diabetes mellitus with other skin complications (principal); L03.115 Cellulitis of right lower limb; Z68.41 Body mass index [BMI] 40.0-44.9, adult; E11.42 Type 2 diabetes mellitus with diabetic polyneuropathy; E78.5 Hyperlipidemia, unspecified; Z86.718 Personal history of other venous thrombosis and embolism; I87.2 Venous insufficiency (chronic) (peripheral); Z89.422 Acquired absence of other left toe(s); Z89.421 Acquired absence of other right toe(s); Z79.82 Long term (current) use of aspirin; Z79.84 Long term (current) use of oral hypoglycemic drugs; L03.031 Cellulitis of right toe; L97.519 Non-pressure chronic ulcer of other part of right foot with unspecified severity; E11.621 Type 2 diabetes mellitus with foot ulcer; I10 Essential (primary) hypertension; E66.01 Morbid (severe) obesity due to excess calories
CPT/HCPCS: 73630; 73723; 80048; 80053; 80202; 82962; 83036; 83605; 85025; 85027; 85652; 86140; 87040; 87070; 87205; 99285; A9585

== ENCOUNTER → 2024-12-03 10:10 | Outpatient (REF) | payer OTHER, SELFPAY ==
[2024-12-03 12:48] LABS: % Eosinophils 2.4 % (0-6); % Immature Granulocytes 0.2 % (0-0.5); % Lymphocytes 15.3 % (20.5-51.1); % Monocytes 8.9 % (1.7-9.3); % Neutrophils 72.2 % (42.2-75.2); Absolute Basophils 0.1 10^3/uL (0-0.2); Absolute Eosinophils 0.2 10^3/uL (0-0.7); Absolute Lymphocytes 1.4 10^3/uL (1.2-3.4); Absolute Monocytes 0.8 10^3/uL (0.1-0.6); Absolute Neutrophils 6.4 10^3/uL (1.4-6.5); Hematocrit 38.6 % (39.0-52.0); Hemoglobin 13.1 g/dL (13.0-18.0); Mean Corp Hgb Conc. 33.9 g/dL (33.0-37.0); Mean Corpuscular Hgb 28.9 pg (27.0-31.0); Mean Corpuscular Volume 85.2 fL (80.0-94.0); Mean Platelet Volume 9.8 fL (7.4-10.4); Nucleated Red Blood Cells % 0 % (-); Platelet Count 310 10^3/uL (130-400); Red Blood Cell Count 4.53 10^6/uL (4.70-6.10); Red Cell Dist. Width 13.9 % (11.5-14.5); White Blood Cell Count 8.8 10^3/uL (4.8-10.8)
[2024-12-03 12:57] LABS: ALT (SGPT) 27 U/L (0-50); AST (SGOT) 32 U/L (17-59); Albumin 3.9 g/dl (3.5-5.0); Alkaline Phosphatase 96 U/L (38-126); Blood Urea Nitrogen 19 mg/dl (9-20); Calcium 10.1 mg/dl (8.4-10.2); Carbon Dioxide 20 mmol/L (22-30); Chloride 104 mmol/L (98-107); Glucose 102 mg/dl (70-99); HDL Cholesterol 26 mg/dl; LDL Cholesterol, Calculated 39 mg/dl; Magnesium 1.6 mg/dl (1.6-2.3); Potassium 4.5 mmol/L (3.5-5.1); Sodium 136 mmol/L (135-145); Total Bilirubin 0.9 mg/dl (0.2-1.3); Total Cholesterol 80 mg/dl (50-199); Total Protein 6.6 g/dl (6.3-8.2); Triglyceride 78 mg/dl (10-149); Very Low Density Lipoprotein 15 mg/dl (0-30); eGFR > 60.00
[2024-12-03 13:27] LABS: PSA, Total - Screen 0.92 ng/ml (0.0-4.0)
[2024-12-03 13:40] LABS: Microalbumin, Random Urine 1.6 mg/dl (0.6-1.7)
== END ==
LOC: HWLAB 10:10
PROVIDERS: ATTENDING PHYSICIAN Internal Medicine
DX: E87.20 Acidosis, unspecified (principal); R93.1 Abnormal findings on diagnostic imaging of heart and coronary circulation; Z12.5 Encounter for screening for malignant neoplasm of prostate; E11.621 Type 2 diabetes mellitus with foot ulcer
CPT/HCPCS: 36415; 80053; 80061; 82043; 83735; 85025; G0103

== ENCOUNTER → 2025-06-11 10:25 | Outpatient (REF) | payer OTHER, SELFPAY ==
[2025-06-11 12:05] LABS: Hematocrit 41.7 % (39.0-52.0); Hemoglobin 13.6 g/dL (13.0-18.0); Mean Corp Hgb Conc. 32.6 g/dL (33.0-37.0); Mean Corpuscular Volume 88.0 fL (80.0-94.0); Nucleated Red Blood Cells % 0 % (-); Platelet Count 262 10^3/uL (130-400); Red Cell Dist. Width 14.1 % (11.5-14.5)
[2025-06-11 12:27] LABS: Microalb - Urine Creatinine 178.700 mg/dl
[2025-06-11 12:32] LABS: Microalbumin, Random Urine 1.4 mg/dl (0.6-1.7)
[2025-06-11 12:34] LABS: ALT (SGPT) 27 U/L (0-50); AST (SGOT) 23 U/L (17-59); Albumin 4.3 g/dl (3.5-5.0); Alkaline Phosphatase 124 U/L (38-126); Blood Urea Nitrogen 22 mg/dl (9-20); Calcium 10.0 mg/dl (8.4-10.2); Carbon Dioxide 24 mmol/L (22-30); Chloride 108 mmol/L (98-107); Glucose 118 mg/dl (70-99); HDL Cholesterol 44 mg/dl; LDL Cholesterol, Calculated 46 mg/dl; Potassium 5.3 mmol/L (3.5-5.1); Sodium 139 mmol/L (135-145); Total Protein 6.9 g/dl (6.3-8.2); Very Low Density Lipoprotein 18 mg/dl (0-30); eGFR > 60.00
[2025-06-11 12:54] LABS: Glycohemoglobin (HgbA1c) 6.3 % (4.0-5.6)
== END ==
LOC: HWLAB 10:25
PROVIDERS: ATTENDING PHYSICIAN Internal Medicine
DX: E11.52 Type 2 diabetes mellitus with diabetic peripheral angiopathy with gangrene (principal); E78.2 Mixed hyperlipidemia
CPT/HCPCS: 36415; 80053; 80061; 82043; 82570; 83036; 85025